=== PATIENT | male | born 1950 | race Two or more races ===

== ENCOUNTER 2016-11-02 20:47 | Emergency (ER) | payer MEDICAID, MEDICARE ==
[~2016-11-02] VITALS: Ht 152.4 cm; Wt 72.6 kg
[2016-11-02 21:04] VITALS: BP 190/98
== END 2016-11-02 21:35 | disposition home or self-care (01) ==
LOC: ER 20:51
DX: G40.909 Epilepsy, unspecified, not intractable, without status epilepticus (principal); I10 Essential (primary) hypertension
CPT/HCPCS: 99283; A4606; Z7610

== ENCOUNTER 2020-02-02 18:12 | Inpatient (IN) | payer MEDICAID, MEDICARE ==
[~2020-02-02] VITALS: Ht 152.4 cm; Wt 64.2 kg
[2020-02-02 19:00] LABS: BASOPHILS # (AUTO) 0.1 /CMM (0.0-0.2); BASOPHILS % (AUTO) 0.8 % (0.0-2.0); HEMATOCRIT 43 % (39-51); HEMOGLOBIN 14.5 g/dL (13.5-17.5); LYMPHOCYTES # (AUTO) 0.7 /CMM (0.8-4.8); LYMPHOCYTES % (AUTO) 9.5 % (20.0-44.0); MEAN CORPUSCULAR HGB CONC 34 g/dl (31.0-36.0); MEAN CORPUSCULAR VOLUME 88 fL (80-96); MONOCYTES # (AUTO) 0.9 /CMM (0.1-1.30); MONOCYTES % (AUTO) 12.2 % (2.0-12.0); NEUTROPHILS % (AUTO) 77.5 % (43.0-81.0); PLATELET COUNT (AUTO) 127 /CMM (150-450); RED BLOOD CELL COUNT(AUTO) 4.88 MIL/uL (4.5-6.0); WHITE BLOOD COUNT (AUTO) 7.7 K/uL (4.3-11.0)
[2020-02-02] MEDS ORDERED: IV NS 0.9% 1,000 ML BAG IV ONE (19:00)
--- NOTE | 2020-02-02 19:05 | NUR ---
ROBERTO FROM HOME TO ER BED 12. AAOX3. NOT IN RESP DISTRESS, BREATHING EVEN AND UNLABORED. BROUGHT IN FOR DIZZYNESS, GEN WEAKNESS AND UNSTEADY GAIT. PER REPORT, PT HAS BEEN HAVINHGTHE SYSMPTOMS SINCE THIS MORNING. PT WAS NOTED BY HIS WALKING UNSTEADY AND REPORTED THAT HE HAD FALLEN. NO REPORTS OBTAINED IF PT HIT HIS HEAD BUT NO NOTED VISUAL INJURY. MD WAS AT THE BEDSIDE FOR EVAL. ORDERS RECEIVED NOTED AND CARRIED OUT. IV LINE IS ALREADY ESTABLISHED UPON ARRIVAL. BLOOD DRAWN AND GIVEN TO ARCHITECTURAL ENGINEERING TEACHER. PT WAS AMBULATED PER MD ORDERED FOR GAIT TEST, PT IS WOBBLING ON UNSTEADY GAIT. URINE COLLECTED AND SENT TO LAB
[2020-02-02 19:10] LABS: BILIRUBIN,URINE Negative (NEGATIVE); BLOOD, URINE Moderate Ery/uL (NEGATIVE); COLOR,URINE Yellow (YELLOW); KETONES,URINE Trace (NEGATIVE); LEUKOCYTE ESTERASE ,URINE Negative (NEGATIVE); NITRITE, URINE Negative (NEGATIVE); PROTEIN,URINE >=300 mg/dl (NEGATIVE); UGLUCOSE Negative (NEGATIVE); UROBILINOGEN,URINE 0.2 EU/dL (0.2)
[2020-02-02 19:12] LABS: APPEARANCE,URINE HAZY (CLEAR)
[2020-02-02 19:21] LABS: BACTERIA,URINE Few /HPF (None Seen); SQUAMOUS EPITHELIAL CELL,UR Few /HPF (None Seen); WBC,URINE 0-2 /HPF (0-3)
[2020-02-02 19:29] LABS: BILIRUBIN,DIRECT 0.2 mg/dL (0.0-0.2); BILIRUBIN,TOTAL 0.4 mg/dL (0.2-1.0); CALCIUM, SERUM 8.2 mg/dL (8.5-10.1); TOTAL PROTEIN, SERUM 7.9 g/dL (6.4-8.2)
[2020-02-02 19:33] LABS: ALCOHOL, BLOOD 0 mg/dL (0-0)
[2020-02-02 19:35] LABS: SERUM AMMONIA 24 umol/L (11-32)
[2020-02-02] MEDS ORDERED: ENALAPRILAT INJ (1.25 MG/ML) 1.25 MG/ML VIAL IV ONE (19:42)
[2020-02-02] MEDS ORDERED: FUROSEMIDE 100 MG/10 ML VIAL ONE (19:42)
--- NOTE | 2020-02-02 19:42 | NUR ---
CALLED LAB FOR RAPID COVID SWAB FOR PENDING ADMISSION
[2020-02-02] MEDS ORDERED: NITROGLYCERIN 0.4 MG/TAB BOTTLE ONE (19:43)
[2020-02-02] MEDS ORDERED: FUROSEMIDE 40 MG/4 ML VIAL ONE (19:51)
[2020-02-02] MEDS ORDERED: FUROSEMIDE 20 MG/2 ML VIAL ONE (19:51)
[2020-02-02] MEDS ORDERED: ENALAPRILAT INJ (1.25 MG/ML) 1.25 MG/ML VIAL IV PRN (20:00)
[2020-02-02] MEDS ORDERED: FUROSEMIDE 40 MG/4 ML VIAL IV ONE (20:00)
[2020-02-02] MEDS ORDERED: NITROGLYCERIN 0.4 MG/TAB BOTTLE SL ONE (20:00)
[2020-02-02] MEDS ORDERED: ASPIRIN 81 MG TAB.CHEW PO ONE (20:00)
--- NOTE | 2020-02-02 20:09 | NUR ---
DR. VEENA IRVING PER TOBI ALBERTO ORDER.
--- NOTE | 2020-02-02 20:13 | NUR ---
PT SAT 03% PLACED ON 2L NC SAT 98% NOW.
--- NOTE | 2020-02-02 20:13 | NUR ---
1 NITRO SL GIVEN, PER MD GIVE 2SL NITRO. WILL WAIT 5MINS THEN ADMINISTER ANOTHER.
--- NOTE | 2020-02-02 20:22 | NUR ---
SECOND NITRO GIVEN TO PT/ BP 203/104, HR 91. MD AWARE.
--- NOTE | 2020-02-02 20:33 | NUR ---
LAB CALLED REGARDING NEGATIVE COVID RESULT.
--- NOTE | 2020-02-02 20:34 | NUR ---
CALLED NURSING SUP FOR TELE BED.
--- NOTE | 2020-02-02 20:37 | NUR ---
RENETTA 117-1
--- NOTE | 2020-02-02 20:53 | NUR ---
REPORT GIVEN TO TONY ROGERS FOR [facility]
--- NOTE | 2020-02-02 21:15 | NUR ---
STATISTICAL MODELER NOTES RECEIVED PT FROM ER VIA TODD A/O X4 TAIWANESE SPEAKING ONLY, ON ROOM AIR SPO2 96% TOLERATING WELL NO SIGN AND SYMPTOMS OF RESPIRATORY DISTRESS WALK TO THE BED WITH ASSISTANCE, HEAD TO TOE ASSESSMENT DONE LEFT KNEE SCAB NOTED OTHERWISE SKIN ARE INTACT, PT ASK URINAL TO PEE OUT PUT ONLY 15ML, V/S CHECKED BP 148/75 TEMP 99.5 HR 89 RR, 20, HOOKED TO TELE MONITOR WITH READING SINUS RHYTHM 90'S INITIAL ADMISSION ASSESSMENT DONE, NURSING SWALLOW TEST DONE PT PASS, PT ABLE TO DRINK WATER AND EAT, SAFETY MEASURE INITIATED BED ON LOWEST POSITION AND LOCKED SIDE RAILS UP, SEIZURE PRECAUTION INITIATED, WILL CONT TO MONITOR Addendum: 02/03/20 at 0207 by KEN GARCIA RN PT WAS TRANSLATED BY THE DYAN COOPER
--- NOTE | 2020-02-02 21:17 | NUR ---
PT TRANSPORTED TO UNIT ON GURNEY WITH EMT AND RN AT BEDSIDE W/ ACLS PROTOCOL. NAD NOTED DURING TRNASPORT. PT AMBULATED W/ MIN ASSIST FROM GURNEY TO BED.
[2020-02-02 21:31] VITALS: BP 148/75
[2020-02-02] MEDS ORDERED: MAG HYDROX/AL HYDROX/SIMETH 30 ML UDC PO PRN (22:00)
[2020-02-02] MEDS ORDERED: Z GUARD REMEDY 2 OZ OINT TP PRN (22:00)
[2020-02-02] MEDS ORDERED: MAGNESIUM HYDROXIDE 30 ML UDC PO PRN (22:00)
[2020-02-02] MEDS ORDERED: ONDANSETRON HCL/PF 4 MG/2 ML VIAL IVP PRN (22:00)
[2020-02-02] MEDS ORDERED: HYDROCODONE/APAP 5/325MG TABLET PO PRN (22:00)
--- NOTE | 2020-02-02 22:00 | NUR ---
RN NOTES PT TRY TO URINATE BUT ONLY SMALL AMOUT CAME OUT PT IS COMPLAINING OF PAIN ON HIS PUBIS AREA, DR. GANNON MADE AWARE, VERGARA CATHETER WAS INSERTED YELLOW URINE DRAINED VIA GRAVITY 300ML INITIAL OUTPUT, WILL CONT TO MONITOR
[2020-02-02] MEDS: ENOXAPARIN SODIUM 40 MG/0.4 ML DISP.SYRIN SQ SCH (22:09)
[2020-02-03] VITALS (8 sets, daily range): BP systolic 124–155; BP diastolic 72–98
[2020-02-03] MEDS ORDERED: PHENYTOIN EXTENDED RELEASE 100 MG CAPSULE PO SCH (00:30)
[2020-02-03] MEDS: ASPIRIN 325 MG TABLET PO SCH ×2 (00:50→08:41)
[2020-02-03] MEDS: TAMSULOSIN 0.4 MG CAP.SR.24H PO SCH ×2 (00:50→21:07)
[2020-02-03] MEDS: PHENYTOIN EXTENDED RELEASE 100 MG CAPSULE PO SCH ×3 (00:50→21:07)
[2020-02-03] MEDS: METOPROLOL TARTRATE 25 MG TABLET PO SCH ×3 (00:54→21:07)
[2020-02-03] MEDS: NITROGLYCERIN PACKET 1 GM PACKET TOP SCH ×4 (00:55→21:07)
--- NOTE | 2020-02-03 06:46 | NUR ---
RN CLOSING NOTES PT ON BED ASLEEP NO SIGN AND SYMPTOMS OF RESPIRATORY DISTRESS, SPO2 96% 02 2L VIA NC, NO SIGNIFICANT CHANGES ON CONDITION NOTED, TELE MONITOR READS SINUS RHYTHM 80'S ALL NEEDS ATTENDED, SAFETY MEASURE MAINTAINED BED ON LOWEST POSITION AND LOCKED SIDE RAILS UP X 2 CALL LIGHT WITHIN REACH WILL ENDORSE TO AM SHIFT NURSE
--- NOTE | 2020-02-03 07:45 | NUR ---
RN OPENING NOTES RECEIVED PT ON BED ASLEEP NO SIGN AND SYMPTOMS OF RESPIRATORY DISTRESS, SPO2 96% 02 2L VIA NC. PATIENT IS PAKISTANI SPEAKING ONLY. TELE MONITOR READS SINUS RHYTHM 80''S. IV ACCESS NOTED RAC # 18, FLUSH AND PATENT. SAFETY MEASURE MAINTAINED BED ON LOWEST POSITION AND LOCKED SIDE RAILS UP X 2 CALL LIGHT WITHIN REACH WILL CONTINUE TO MONITOR.
[2020-02-03 07:56] LABS: BASOPHILS % (AUTO) 0.6 % (0.0-2.0); HEMATOCRIT 42 % (39-51); HEMOGLOBIN 14.2 g/dL (13.5-17.5); LYMPHOCYTES # (AUTO) 0.9 /CMM (0.8-4.8); LYMPHOCYTES % (AUTO) 10.4 % (20.0-44.0); MEAN CORPUSCULAR HGB CONC 34 g/dl (31.0-36.0); MEAN CORPUSCULAR VOLUME 87 fL (80-96); MONOCYTES # (AUTO) 0.9 /CMM (0.1-1.30); MONOCYTES % (AUTO) 10.3 % (2.0-12.0); NEUTROPHILS # (AUTO) 6.8 /CMM (1.8-8.9); NEUTROPHILS % (AUTO) 78.7 % (43.0-81.0); PLATELET COUNT (AUTO) 134 /CMM (150-450); RED BLOOD CELL COUNT(AUTO) 4.77 MIL/uL (4.5-6.0); WHITE BLOOD COUNT (AUTO) 8.7 K/uL (4.3-11.0)
[2020-02-03 08:05] LABS: CALCIUM, SERUM 7.8 mg/dL (8.5-10.1); CREATININE 0.9 mg/dL (0.6-1.3); MAGNESIUM 2.1 mg/dL (1.8-2.4); PHOSPHORUS 2.8 mg/dL (2.5-4.9); POTASSIUM 3.6 mmol/L (3.5-5.1)
[2020-02-03] MEDS: ATORVASTATIN 10 MG TABLET PO SCH (09:48)
[2020-02-03 10:22] LABS: THYROID STIMULATING HORMONE 3.278 uIU/mL (0.358-3.74)
--- NOTE | 2020-02-03 16:57 | NUR ---
patient discontinue dietrich out by accidently dietrich out upr was 450ml and bladder scan shows 47ml was notified and orders taken bladder scan q6hrs next due will be 2300 and will call MD if above 300ml of bladder scan will endorse to next shift
--- NOTE | 2020-02-03 18:42 | NUR ---
RN CLOSING NOTES WILL ENDORSE TO PM NURSE. PT ON BED RESTING COMFORTABLE. NO SIGN AND SYMPTOMS OF RESPIRATORY DISTRESS, SPO2 96% 02 2L VIA NC, NO SIGNIFICANT CHANGES ON CONDITION NOTED, TELE MONITOR READS SINUS RHYTHM 80'S ALL NEEDS ATTENDED, SAFETY MEASURE MAINTAINED BED ON LOWEST POSITION AND LOCKED SIDE RAILS UP X 2 CALL LIGHT WITHIN REACH .
--- NOTE | 2020-02-03 19:05 | NUR ---
RN OPENING NOTES RECEIVED PT ON BED AWAKE A/O X4 ON ROOM AIR SPO2 97% NO SIGN AND SYMPTOMS OF RESPIRATORY DISTRESS, NO COMPLAINT OF PAIN ON TELE MONITOR WITH READING SINUS RHYTHM 80'S WITH R AC # 18 IV PATENT AND FLUSHED NO INFILTRATION OR PHLEBITIS NOTED,MINIMAL BLEEDING OF PENIS NOTED FOR BLADDER SCAN Q6H LAST CHECKED AT 1600 WITH 47ML PVR, SAFETY MEASURE MAINTAINED BED ON LOWEST POSITION AND LOCKED SIDE RAILS UP X 2 CALL LIGHT WITHIN REACH WILL CONT TO MONITOR
[2020-02-03] MEDS: ENOXAPARIN SODIUM 40 MG/0.4 ML DISP.SYRIN SQ SCH (21:08)
--- NOTE | 2020-02-03 22:16 | NUR ---
RN NOTES BLADDER SCAN DONE PVR 111 ML NO MORE PENIS BLEEDING ZABRINA WILL CONT TO MONITOR
[2020-02-04] VITALS (9 sets, daily range): BP systolic 116–176; BP diastolic 61–93
--- NOTE | 2020-02-04 04:00 | NUR ---
RN NOTES BLADDER SCAN DONE PVR 50ML, DIAPER WAS WET WITH MINIMAL BLOOD TINGE, NO CLOT NOTED NO BLEEDING NOTED
[2020-02-04] MEDS: NITROGLYCERIN PACKET 1 GM PACKET TOP SCH (04:16)
[2020-02-04 06:42] LABS: BASOPHILS % (AUTO) 0.3 % (0.0-2.0); HEMATOCRIT 39 % (39-51); HEMOGLOBIN 13.2 g/dL (13.5-17.5); LYMPHOCYTES # (AUTO) 0.9 /CMM (0.8-4.8); LYMPHOCYTES % (AUTO) 9.9 % (20.0-44.0); MEAN CORPUSCULAR HGB CONC 34 g/dl (31.0-36.0); MEAN CORPUSCULAR VOLUME 87 fL (80-96); MONOCYTES # (AUTO) 1.1 /CMM (0.1-1.30); MONOCYTES % (AUTO) 11.5 % (2.0-12.0); NEUTROPHILS # (AUTO) 7.3 /CMM (1.8-8.9); NEUTROPHILS % (AUTO) 78.3 % (43.0-81.0); PLATELET COUNT (AUTO) 141 /CMM (150-450); RED BLOOD CELL COUNT(AUTO) 4.47 MIL/uL (4.5-6.0); WHITE BLOOD COUNT (AUTO) 9.4 K/uL (4.3-11.0)
--- NOTE | 2020-02-04 06:49 | NUR ---
RN CLOSING NOTES PT ON BED ASLEEP NO SIGN AND SYMPTOMS OF RESPIRATORY DISTRESS, SPO2 96% VIA ROOM AIR NO SIGNIFICANT CHANGES ON CONDITION NOTED, TELE MONITOR READS SINUS RHYTHM 80'S ALL NEEDS ATTENDED,FOR NEURO CONSULT, AND GENTLE HYDRATION A PLAN SAFETY MEASURE MAINTAINED BED ON LOWEST POSITION AND LOCKED SIDE RAILS UP X 2 CALL LIGHT WITHIN REACH WILL ENDORSE TO AM SHIFT NURSE
--- NOTE | 2020-02-04 07:00 | NUR ---
LEVEL VIAL CURVATURE GAUGER 1 A/O X3 PATIENT IS GEORGIAN SPEAKING BUT UNDERSTAND AND IS COOPERATIVE WITH CARE. PATIENT HAS EXTERNAL MONITOR SR IN 70'S PATIENT IS ABLE TO AMBULATE WITH ASSIST, PATIENT WAS NOTIFED TO CALL NURSES FOR ASSISTANCE TO GO TO THE BATH ROOM. PATIENT IS AWARE . PATIENT HAS L KNEE SCAB. BUT SKIN IS IN TACT, PATIENT VITALS STABLE AT THIS TIME NO PAIN , NO SOB NO ACUTE RESPIRATORY DISTRESS PATIENT HAS R AC 18 N OSIGNS OF INFILTRATION REDNESS BED LOCKED AND LOWEST POSITION CALL LIGHT WITH IN REACH 2 X SAFETY RAILS UP CALL LIGHT WITH IN REACH ALL SAFETYM EASURE IMPLEMENTED PER HOSPITAL POLICY
[2020-02-04 08:20] LABS: ALBUMIN 2.6 g/dL (3.4-5.0); BILIRUBIN,TOTAL 0.4 mg/dL (0.2-1.0); CALCIUM, SERUM 8.1 mg/dL (8.5-10.1); CREATININE 1.1 mg/dL (0.6-1.3); MAGNESIUM 2.2 mg/dL (1.8-2.4); PHOSPHORUS 3.8 mg/dL (2.5-4.9); POTASSIUM 3.7 mmol/L (3.5-5.1); TOTAL PROTEIN, SERUM 7.2 g/dL (6.4-8.2)
[2020-02-04] MEDS: ASPIRIN 325 MG TABLET PO SCH (08:26)
[2020-02-04] MEDS: METOPROLOL TARTRATE 25 MG TABLET PO SCH ×2 (08:27→22:09)
[2020-02-04] MEDS: ATORVASTATIN 10 MG TABLET PO SCH (08:27)
[2020-02-04] MEDS: PHENYTOIN EXTENDED RELEASE 100 MG CAPSULE PO SCH ×2 (08:27→22:10)
[2020-02-04 08:32] LABS: THYROID STIMULATING HORMONE 3.314 uIU/mL (0.358-3.74)
--- NOTE | 2020-02-04 10:00 | NUR ---
RN - BLADDER SCAN 55 ML
--- NOTE | 2020-02-04 11:00 | NUR ---
ASSISTANT COUNTY ENGINEER --- PEE PATIENT WANTED TO GET UP AND USE THE BATH ROOM PATIENT WAS ASSISTED BY RESEARCH GREENHOUSE SUPERVISOR. PATIENT LOSING BALANCE AND PEE RED TINGED URINE. WAS NOT ABLE TO PEE IN THE URINAL .
[2020-02-04] MEDS: SPIRONOLACTONE 25 MG TABLET PO SCH (14:06)
[2020-02-04] MEDS: ACETAMINOPHEN 325 MG TABLET PO PRN ×2 (15:48→22:17)
--- NOTE | 2020-02-04 16:30 | NUR ---
GRANULATING BLENDER PATIENT TEMP 99.3 PATIENT GIVEN TYLENOL
--- NOTE | 2020-02-04 17:00 | NUR ---
DATABASE SECURITY ADMINISTRATOR BLADDER SCAN 95ML.
[2020-02-04] MEDS ORDERED: METO25TA20 PO (17:57)
[2020-02-04] MEDS ORDERED: PHEN100C4 PO (17:57)
[2020-02-04] MEDS ORDERED: ATOR10TA PO (17:57)
[2020-02-04] MEDS ORDERED: ASPI-992 PO (17:57)
[2020-02-04] MEDS ORDERED: TAMS-12 PO (17:57)
[2020-02-04] MEDS ORDERED: SPIR25TA6 PO (17:57)
--- NOTE | 2020-02-04 19:30 | NUR ---
RN TELE1 PATIENT HELD FROM DISCHARGE PATIENT BP 176/96 - TEMPERATURE 102.5 . COIL CONNECTOR WAS CALL FOR ORDER DR RUBIO ORDERED FOR FOR BLOOD CULTURES
--- NOTE | 2020-02-04 19:45 | NUR ---
TRAINING ENGINEER - NEW ORDERS DR. RUBIO 2X BLOOD CULTURES 15 MINS APART , UA , CHEST XRAY STATE ORDERS . CANCELLED DISCHARGE , NOTIFED DR GRAHAM
--- NOTE | 2020-02-04 19:49 | NUR ---
RN NOTE RECEIVED PT IN BED RESTING. BAHAMIAN SPEAKING. BLOW MOLDING MACHINE OPERATOR USED. ALERT AND ORIENTED X 4. FULL CODE. ON OXYGEN VIA NASAL CANNULA AT PT WAS UNABLE TO GET DISCHARGED ORIGINALLY PLANNED DUE TO UNSTABLE VITALS. @1939 TEMP WAS 102, BP 176/93 APPLIED ICE PACKS, UNABLE TO GIVEN PRN TYLENOL UNTIL AFTER 2129. ADMINISTERED CATAPRES PRN ORDERED. BED IS LOCKED IN LOWEST POSITION WITH BED ALARM ON. WILL CONTINUE TO MONITOR CLOSELY AND REASSESS ABNORMAL VITAL SIGNS. Addendum: 02/05/20 at 0606 by ALEXA ISAACS RN RN NOTE @2209 TEMP REASSESSED 101.9 @2216 GAVE TYLENOL PRN 650 MG @2330 TEMP REASSESSED 100.0 @2217 ON 02/04/20 PT CHECKED
[2020-02-04] MEDS: CLONIDINE HCL 0.1 MG TABLET PO PRN (19:58)
--- NOTE | 2020-02-04 20:00 | NUR ---
MS RN NOTE DR CURIEL INFORMED IF PT IS STAYING OVERNIGHT THEN PT IS REMAIN MS OR TELE. PER MD KEEP HIM MS UNLESS THERE IS CARDIAC ISSUE. TELE DC'D.
--- NOTE | 2020-02-04 21:00 | NUR ---
MS RN NOTE PT IN BED IN AND OUT CATH DONE URINE SPECIMEN COLLECTED. NOTED HEMATURIA. INFORMED DR CURIEL. NO NEW ORDER GIVEN AT THIS TIME. SPECIMEN SENT TO LAB ORDERED.
[2020-02-04] MEDS: ENOXAPARIN SODIUM 40 MG/0.4 ML DISP.SYRIN SQ SCH (22:00)
[2020-02-04] MEDS: TAMSULOSIN 0.4 MG CAP.SR.24H PO SCH (22:10)
--- NOTE | 2020-02-04 22:20 | NUR ---
RN NOTE LOVENOX HELD DUE TO PRESENCE OF HEMATURIA.
[2020-02-05] VITALS: BP 115/66
--- NOTE | 2020-02-05 00:02 | NUR ---
RN NOTE STRAIGHT CATH DONE. HEMATURIA WAS PRESENT. 200 ML OUT.
--- NOTE | 2020-02-05 00:34 | NUR ---
RN NOTE TEMP REASSESSED 99.0
[2020-02-05 04:00] VITALS: BP 115/66
[2020-02-05 04:21] LABS: APPEARANCE,URINE CLOUDY (CLEAR); BILIRUBIN,URINE SMALL (NEGATIVE); BLOOD, URINE LARGE Ery/uL (NEGATIVE); COLOR,URINE RED (YELLOW); KETONES,URINE TRACE (NEGATIVE); LEUKOCYTE ESTERASE ,URINE TRACE (NEGATIVE); NITRITE, URINE POSITIVE (NEGATIVE); PH,URINE 6.5 (5.0-8.0); PROTEIN,URINE >=300 mg/dl (NEGATIVE); UGLUCOSE NEGATIVE (NEGATIVE)
[2020-02-05 04:25] LABS: RBC,URINE TOO NUMEROUS TO COUN /HPF (0-2)
[2020-02-05 04:26] LABS: BACTERIA,URINE Few /HPF (None Seen); SQUAMOUS EPITHELIAL CELL,UR Rare /HPF (None Seen)
[2020-02-05 04:44] LABS: EOSINOPHIL,URINE None Seen
[2020-02-05 04:47] LABS: CREATININE, URINE 164.6 MG/DL (30.0-125.0); URINE TOTAL PROTEIN 246.9 mg/dL (0-11.9)
[2020-02-05 06:17] LABS: BASOPHILS % (AUTO) 0.2 % (0.0-2.0); HEMATOCRIT 41 % (39-51); HEMOGLOBIN 13.9 g/dL (13.5-17.5); LYMPHOCYTES # (AUTO) 0.8 /CMM (0.8-4.8); LYMPHOCYTES % (AUTO) 7.6 % (20.0-44.0); MEAN CORPUSCULAR HGB CONC 34 g/dl (31.0-36.0); MEAN CORPUSCULAR VOLUME 87 fL (80-96); MONOCYTES # (AUTO) 0.9 /CMM (0.1-1.30); MONOCYTES % (AUTO) 8.3 % (2.0-12.0); NEUTROPHILS # (AUTO) 8.8 /CMM (1.8-8.9); NEUTROPHILS % (AUTO) 83.9 % (43.0-81.0); PLATELET COUNT (AUTO) 153 /CMM (150-450); RED BLOOD CELL COUNT(AUTO) 4.72 MIL/uL (4.5-6.0); WHITE BLOOD COUNT (AUTO) 10.5 K/uL (4.3-11.0)
[2020-02-05 06:55] LABS: CREATININE 0.9 mg/dL (0.6-1.3); MAGNESIUM 2.2 mg/dL (1.8-2.4); PHOSPHORUS 2.7 mg/dL (2.5-4.9); POTASSIUM 3.8 mmol/L (3.5-5.1)
[2020-02-05 08:00] VITALS: BP 163/99
--- NOTE | 2020-02-05 08:14 | NUR ---
RN CLOSING NOTE PATIENT IS CURRENTLY ASLEEP IN BED. LAST TEMPERATURE WAS OF 100.3 TAKEN AT 0400 VITALS. ON OXYGEN VIA NASAL CANNULA AT 3L. ALERT AND ORIENTED X 3. SLOVAK SPEAKING. USED EYEGLASS FRAME TRUER THROUGHOUT SHIFT. SINUS RHYTHM 80. PATIENT HAS NO SIGNS OF SHORTNESS OF BREATH OR RESPIRATORY DISTRESS AT THIS TIME. PATIENT VERBALIZED COMPLAINTS OF BEING COLD. SECONDARY TO THE FEVER. TOOK OFF SHEETS AND EXPLAINED PURPOSE WITH EYEGLASS FRAME TRUER. HEMATURIA PRESENT FROM IN AND OUT CATH. 200 ML OUT. SKIN INTACT ASIDE FROM LEFT KNEE SCAB. LAST TYLENOL GIVEN WAS AT 2210 FOR FEVER OF 101.9. REASSESSED WITH TEMP OF 100.0 TRENDING DOWN REASSESSED 99.0 LAST TEMP WAS 100.3 AT 0400 VITALS. BED IS LOCKED IN LOWEST POSITION WITH BED ALARM ON. ENDORSED TO ONCOMING SHIFT NURSE FOR CONTINUATION OF CARE.
[2020-02-05] MEDS: PHENYTOIN EXTENDED RELEASE 100 MG CAPSULE PO SCH ×2 (09:10→20:53)
[2020-02-05] MEDS: ACETAMINOPHEN 325 MG TABLET PO PRN ×2 (09:11→20:55)
[2020-02-05] MEDS: ATORVASTATIN 10 MG TABLET PO SCH (09:11)
[2020-02-05] MEDS: METOPROLOL TARTRATE 25 MG TABLET PO SCH ×2 (09:11→20:53)
[2020-02-05] MEDS: SPIRONOLACTONE 25 MG TABLET PO SCH (09:11)
[2020-02-05] MEDS: ASPIRIN 325 MG TABLET PO SCH (09:12)
[2020-02-05] MEDS ORDERED: LEVOFLOXACIN (250MG) 250 MG TABLET PO SCH (11:00)
[2020-02-05] MEDS: FUROSEMIDE 40 MG/4 ML VIAL IV SCH ×3 (11:24→18:38)
[2020-02-05] MEDS: POTASSIUM CHLORIDE 20 MEQ TAB.PRT.SR PO SCH ×3 (11:24→13:45)
[2020-02-05 12:00] VITALS: BP 131/75
--- NOTE | 2020-02-05 13:45 | NUR ---
Pt was received this am, alert and oriented x 3, afebrile. Will continue to monitor temp and will give Tylenol PRN. Ambulates with assist and sat on the bedside chair. Good appetite noted, denies any pain or discomfort. Tolerating small pills, taken 1 puill at a time. Replaced PIV, old one was infiltrated or dislodged. Had two episodes of watery soft stool this am, will obtain a specimen for the next one for Cdiff per Dr. Robby Burdick
[2020-02-05 16:00] VITALS: BP 164/99
--- NOTE | 2020-02-05 18:32 | NUR ---
Pt had a noneventful day, bladder scan was done at 1727 and obtained 127 cc, copy was placed in the chart. Some bleeding noted from the penis and noticed dried blood with a blood clot, was informed that pt pulled out his dietrich cath yesterday. Bleeding is stopped now and clot remains intact. Pt had two episodes of watery stool, Dr. Robby Steinberg was informed and ordered to obtain specimen for Cdiff if another episode of watery diarrhea happens again. Will give report to night supervisor for [facility].
--- NOTE | 2020-02-05 19:10 | NUR ---
RN OPENING NOTES RECEIVED PT ON BED AWAKE A/O X4 ON ROOM AIR SPO2 94% NO SIGN AND SYMPTOMS OF RESPIRATORY DISTRESS,BUT PT IS COUGHING RIGHT NOW NO COMPLAINT OF PAIN ON R HAND #20 IV PATENT AND FLUSHED NO INFILTRATION OR PHLEBITIS NOTED,NO BLEEDING OF PENIS NOTED FOR BLADDER SCAN Q6H LAST CHECKED AT 1800 WITH 50ML PVR, SAFETY MEASURE MAINTAINED BED ON LOWEST POSITION AND LOCKED SIDE RAILS UP X 2 CALL LIGHT WITHIN REACH WILL CONT TO MONITOR
[2020-02-05 20:00] VITALS: BP 142/91
[2020-02-05] MEDS: ENOXAPARIN SODIUM 40 MG/0.4 ML DISP.SYRIN SQ SCH (21:02)
[2020-02-05] MEDS: TAMSULOSIN 0.4 MG CAP.SR.24H PO SCH (21:02)
--- NOTE | 2020-02-05 22:00 | NUR ---
RN NOTES TEMP RECHECKED 99.3 PT IS ABLE TO PEE, DIAPER WAS WET, NO PAIN COMPLAINT,
--- NOTE | 2020-02-06 00:21 | NUR ---
RN NOTES MD MADE AWARE OF PT COUGHING AND ELEVATED TEMP @ 1999, MD WILL ORDER PULMO CONSULT [place] AM, BLADDER SCAN DONE PVR 60ML
[2020-02-06 04:00] VITALS: BP 108/69
[2020-02-06 06:45] LABS: BASOPHILS % (AUTO) 0.3 % (0.0-2.0); EOSINOPHILS % (AUTO) 0.1 % (0.0-6.0); HEMATOCRIT 44 % (39-51); HEMOGLOBIN 14.8 g/dL (13.5-17.5); LYMPHOCYTES # (AUTO) 0.6 /CMM (0.8-4.8); LYMPHOCYTES % (AUTO) 6.8 % (20.0-44.0); MEAN CORPUSCULAR HGB CONC 34 g/dl (31.0-36.0); MEAN CORPUSCULAR VOLUME 87 fL (80-96); MONOCYTES # (AUTO) 0.9 /CMM (0.1-1.30); MONOCYTES % (AUTO) 9.5 % (2.0-12.0); NEUTROPHILS # (AUTO) 7.9 /CMM (1.8-8.9); NEUTROPHILS % (AUTO) 83.3 % (43.0-81.0); PLATELET COUNT (AUTO) 169 /CMM (150-450); RED BLOOD CELL COUNT(AUTO) 5.02 MIL/uL (4.5-6.0); WHITE BLOOD COUNT (AUTO) 9.4 K/uL (4.3-11.0)
--- NOTE | 2020-02-06 06:54 | NUR ---
RN CLOSING NOTES PT ON BED ASLEEP NO SIGN AND SYMPTOMS OF RESPIRATORY DISTRESS, SPO2 95% VIA ROOM AIR NO SIGNIFICANT CHANGES ON CONDITION NOTED, LATEST TEMP 98.5 ALL NEEDS ATTENDED, GENTLE HYDRATION A PLAN SAFETY MEASURE MAINTAINED BED ON LOWEST POSITION AND LOCKED SIDE RAILS UP X 2 CALL LIGHT WITHIN REACH WILL ENDORSE TO AM SHIFT NURSE
[2020-02-06 07:13] LABS: ALBUMIN 2.5 g/dL (3.4-5.0); BILIRUBIN,TOTAL 0.4 mg/dL (0.2-1.0); CALCIUM, SERUM 8.2 mg/dL (8.5-10.1); POTASSIUM 3.6 mmol/L (3.5-5.1); TOTAL PROTEIN, SERUM 7.9 g/dL (6.4-8.2)
--- NOTE | 2020-02-06 07:50 | NUR ---
PROCESS AREA SUPERVISOR/RENETTA OPENING NOTE RECEIVED PT IN BED AWAKE, ALERT AND ORIENTED X3. PT IS GERMAN SPEAKING BUT ABLE TO COMMUNICATE HIS NEEDS. NO ACUTE DISTRESS OR SOB NOTED AT THIS TIME. PT IS IN STABLE CONDITION. PT IS ON 4L OF OXYGEN SATURATING AT 99% AT THIS TIME. PT IS ABLE TO AMBULATE TO THE RESTROOM WITH ASSISTANCE. PT NOTED WITH A LEFT KNEE SCAB. PT HAS A RIGHT FOREARM 20' INTACT, PATENT AND FLUSHING WELL. NO TEMPERATURE NOTED AT THIS TIME. BED ALARM ON TO ENSURE PT SAFETY. FREQUENTLY MONITORING PROVIDED TO ENSURE SAFETY AT ALL VESNA ES. CALL LIGHT WITHIN REACH AND FUNCTIONING. WILL CONTINUE MONITOR AND ASSESS PT.
[2020-02-06] MEDS: ASPIRIN 325 MG TABLET PO SCH (08:40)
[2020-02-06] MEDS: ATORVASTATIN 10 MG TABLET PO SCH (08:40)
[2020-02-06] MEDS: PHENYTOIN EXTENDED RELEASE 100 MG CAPSULE PO SCH ×2 (08:40→21:38)
[2020-02-06] MEDS: SPIRONOLACTONE 25 MG TABLET PO SCH (08:40)
[2020-02-06] MEDS: METOPROLOL TARTRATE 25 MG TABLET PO SCH ×2 (08:42→22:05)
[2020-02-06] MEDS: CARVEDILOL 12.5 MG TABLET PO SCH ×2 (09:42→22:05)
--- NOTE | 2020-02-06 09:45 | NUR ---
RT TELE/ RENETTA NOTE DR. ROBB CAME AND ASSESS PT. PCR ORDERED DUE TO PT HAVING A DRY COUGH DESCRIBED BY EDGE PLUGGER NURSE. NO COUGHING NOTED SO FAR DURING DAY SHIFT. ALL SAFETY MEASURES IMPLEMENTED AND TAKEN. PCR SWAB DONE AND TAKEN TO LAB. AWAITING RESULTS. WILL CONTINUE TO MONITOR AND ASSESS PT.
[2020-02-06] MEDS: LEVOFLOXACIN 750 MG /D5W 150ML 750 MG in PREMIX 1 EA IV SCH (10:03)
--- NOTE | 2020-02-06 11:15 | NUR ---
GALVANIZING POT RUNNER/RENETTA NOTE GOT ORDER TO TRANSFER PT TO ICU. ORDER FOLLOWED CHARGE NURSE AND PT AWARE. BEDSIDE REPORT GIVEN TO NICHOLAS. PT LEFT IN STABLE CONDITION WITH BELONGINGS.
--- NOTE | 2020-02-06 12:00 | NUR ---
RN OPENING NOTES RECEIVED PATIENT FROM RENETTA DUE TO PATIENT BEING TESTED FOR COVID. PATIENT IS IN STABLE CONDITION, ADMITTED MED-SURG PATIENT. PATIENT IS A/O X2-3, EPISODES OF CONFUSION. HEBREW SPEAKING, USED DIRECTOR OF MIDWIFERY/STAFF MIDWIFE TO COMMUNICATE WITH THE PATIENT. ABLE TO AMBULATE WITH ASSISTANCE, VITAL SIGNS ARE STABLE, BP 136/94, HR-75, O2 SAT 98%, TEMP 98.5, RR -18. IV ACCESS ON RIGHT FOREARM #20, INTACT, PATENT AND FLUSHED WELL. SPOKE WITH PATIENTS REGARDING THE PATIENT TRANSFER. SAFETY MAINTAINED, CALL LIGHT WITHIN REACH, WILL CONTINUE TO MONITOR CLOSELY.
--- NOTE | 2020-02-06 18:58 | NUR ---
RN CLOSING NOTES NO ACUTE CHANGES TO PATIENT CONDITION DURING MY SHIFT. ALL PATIENT NEEDS MET, ALL SCHEDULED MEDS GIVEN ON TIME, PATIENT REMAINED ON 4L O2 VIA NC, SATURATION AT 98%, TOLERATING WELL. SAFETY WAS MAINTAINED, CALL LIGHT WITHIN REACH, BED LOCKED, ARMED, AND LOWERED, ENDORSED TO PM NURSE FOR BOLA.
--- NOTE | 2020-02-06 19:25 | NUR ---
RN NOTE TELEPHONE CALL FROM CHINO OF LAB, ADVISED THAT COVID PCR TEST WAS INDETERMINATE. SIGNING AGENT AND Kevin BECKETT JOURNEYMAN MEAT CUTTER NOTIFIED, ORDERS RECEIVED TO DO REPEAT SWAB TODAY. LAB NOTIFIED.
--- NOTE | 2020-02-06 19:30 | NUR ---
RN NOTE RECEIVED PT IN BED, AO X2-3, SPEAKS AND UNDERSTANDS YI ONLY, KENNETH STUART ABLE TO DO TRANSLATION. VERBALIZES DESIRE TO GO HOME. EXPLAINED REASON FOR HOSPITAL ADMISSION. NO S/SX OF ACUTE DISTRESS AT THIS TIME, . PATIENT'S BREATHING IS EVEN AND UNLABORED. PATIENT IS ON 4 L OF OXYGEN VIA NC, TOLERATING WELL, SATURATING AT 97%. HR IS STABLE AT 70'S. NOTED IV SITE AT RFA G20, PATENT AND FLUSHING WELL, NO S/S OF INFECTION OR INFILTRATION. NO SKIN ISSUES NOTED. PATIENT IS AMBULATORY, ON BRP WITH ASSIST, SLIGHT WEAKNESS AND SLOW GAIT NOTED. SAFETY MEASURES IMPLEMENTED PER PROTOCOL. PATIENT BED ALARM IS ON. HEAD OF BED ELEVATED. BED IS LOCKED, IN LOWEST POSITION AND SIDE RAILS UP. CALL LIGHT WITHIN REACH OF THE PATIENT. WILL CONTINUE TO MONITOR AND REASSESS FOR ANY CHANGES.
--- NOTE | 2020-02-06 21:30 | NUR ---
RN NOTE TELEPHONE CALL RECEIVED FROM PATIENT'S DAUGHTER, JOHNATHAN BELLO, PROVIDED HER WITH LIMITED INFORMATION FOR HIPAA COMPLIANCE, OFFERED TO CALL BACK IN THE MORNING SO SHE COULD SPEAK WITH MD. VERBALIZED UNDERSTANDING.
[2020-02-06] MEDS: TAMSULOSIN 0.4 MG CAP.SR.24H PO SCH (21:39)
--- NOTE | 2020-02-06 22:00 | NUR ---
RN NOTE COVID RE-SWAB DONE VIA NASOPHARYNGEAL ROUTE, PATIENT ID BAND CONFIRMED, CONTAINER PROPERLY LABELED, SPECIMEN SENT TO LAB AND RECEIVED BY Seanodes.
[2020-02-06] MEDS: ENOXAPARIN SODIUM 40 MG/0.4 ML DISP.SYRIN SQ SCH (22:10)
--- NOTE | 2020-02-07 01:12 | NUR ---
RN NOTE PATIENT REMAINS IN ROOM. NO SIGNS OF RESPIRATORY DISTRESS. SAFETY MEASURES IMPLEMENTED. ALL DUE MEDS ADMINISTERED ORDERED. PATIENT KEPT CLEAN AND COMFORTABLE. ENDORSED TO GERALDINE JIMENEZ FOR CONTINUATION OF CARE.
--- NOTE | 2020-02-07 01:13 | NUR ---
RN NOTE: Rec'd report from TONY Lozada for BOLA.
[2020-02-07 04:00] VITALS: BP 108/72
[2020-02-07 04:32] LABS: BASOPHILS % (AUTO) 0.4 % (0.0-2.0); EOSINOPHILS % (AUTO) 0.4 % (0.0-6.0); HEMATOCRIT 41 % (39-51); HEMOGLOBIN 13.8 g/dL (13.5-17.5); LYMPHOCYTES # (AUTO) 0.7 /CMM (0.8-4.8); LYMPHOCYTES % (AUTO) 7.2 % (20.0-44.0); MEAN CORPUSCULAR HGB CONC 34 g/dl (31.0-36.0); MEAN CORPUSCULAR VOLUME 86 fL (80-96); MONOCYTES # (AUTO) 1.1 /CMM (0.1-1.30); MONOCYTES % (AUTO) 11.3 % (2.0-12.0); NEUTROPHILS # (AUTO) 7.7 /CMM (1.8-8.9); NEUTROPHILS % (AUTO) 80.7 % (43.0-81.0); PLATELET COUNT (AUTO) 185 /CMM (150-450); RED BLOOD CELL COUNT(AUTO) 4.74 MIL/uL (4.5-6.0); WHITE BLOOD COUNT (AUTO) 9.6 K/uL (4.3-11.0)
[2020-02-07 04:41] LABS: CALCIUM, SERUM 8.4 mg/dL (8.5-10.1); MAGNESIUM 2.2 mg/dL (1.8-2.4); PHOSPHORUS 3.3 mg/dL (2.5-4.9); POTASSIUM 3.7 mmol/L (3.5-5.1)
--- NOTE | 2020-02-07 06:50 | NUR ---
RN CLOSING NOTES: Pt remained stable throughout shift. Remains on 4LPM NC. No SOB or resp distress noted throughout shift. No acute changes noted. RFA #20 patent and flushed. Dressing c/d/i. Kept pt clean/dry. Safety measues in place. Will endorse to AM nurse for BOLA.
--- NOTE | 2020-02-07 07:00 | NUR ---
RN NOTE RECEIVED PT ON BED, AO X2-3, ON 4L O2 N/C , RESPIRATION EVEN AND UNLABORED, NO SOB NOTED, RIGHT FA IV SITE G 20 CLEAN, DRY AND INTACT. SAFETY MEASURES IMPLEMENTED PER PROTOCOL. PATIENT BED ALARM IS ON FOR PT SAFETY , HEAD OF BED ELEVATED. BED IS LOCKED, IN LOWEST POSITION AND SIDE RAILS UP. CALL LIGHT WITHIN REACH OF THE PATIENT. WILL CONTINUE TO MONITOR AND REASSESS FOR ANY CHANGES.
[2020-02-07 08:00] VITALS: BP 154/94
[2020-02-07] MEDS: SPIRONOLACTONE 25 MG TABLET PO SCH (08:19)
[2020-02-07] MEDS: PHENYTOIN EXTENDED RELEASE 100 MG CAPSULE PO SCH ×2 (08:19→21:09)
[2020-02-07] MEDS: ASPIRIN 325 MG TABLET PO SCH (08:20)
[2020-02-07] MEDS: CARVEDILOL 12.5 MG TABLET PO SCH ×2 (08:20→21:11)
[2020-02-07] MEDS: ATORVASTATIN 10 MG TABLET PO SCH (08:20)
[2020-02-07] MEDS: METOPROLOL TARTRATE 25 MG TABLET PO SCH ×2 (08:21→21:11)
[2020-02-07] MEDS: LEVOFLOXACIN 750 MG /D5W 150ML 750 MG in PREMIX 1 EA IV SCH (09:25)
[2020-02-07] MEDS: FUROSEMIDE 40 MG/4 ML VIAL IV SCH ×3 (09:32→16:40)
[2020-02-07] MEDS: POTASSIUM CHLORIDE 20 MEQ TAB.PRT.SR PO SCH ×3 (09:32→11:41)
--- NOTE | 2020-02-07 10:00 | NUR ---
RN NOTES PT OUT OF BED TO BATHROOM WITH ASSIST , VOIDING WELL , CONTINUE TO MONITOR .
[2020-02-07 10:56] LABS: APPEARANCE,URINE SL CLOUDY (CLEAR); BILIRUBIN,URINE NEGATIVE (NEGATIVE); BLOOD, URINE LARGE Ery/uL (NEGATIVE); COLOR,URINE DARK YELLO (YELLOW); KETONES,URINE NEGATIVE (NEGATIVE); LEUKOCYTE ESTERASE ,URINE NEGATIVE (NEGATIVE); NITRITE, URINE NEGATIVE (NEGATIVE); PROTEIN,URINE NEGATIVE (NEGATIVE); UGLUCOSE NEGATIVE (NEGATIVE); UROBILINOGEN,URINE 0.2 EU/dL (0.2)
[2020-02-07 11:06] LABS: BACTERIA,URINE None seen /HPF (None Seen); RBC,URINE 51-80 /HPF (0-2); SQUAMOUS EPITHELIAL CELL,UR Rare /HPF (None Seen); WBC,URINE 0-2 /HPF (0-3)
[2020-02-07 11:12] LABS: CREATININE, URINE 57.1 MG/DL (30.0-125.0); URINE TOTAL PROTEIN 25.9 mg/dL (0-11.9)
[2020-02-07 12:00] VITALS: BP 127/91
[2020-02-07 16:00] VITALS: BP 139/97
--- NOTE | 2020-02-07 16:00 | NUR ---
RN NOTES CALL RECEIVED FROM LAB , PT IS POSITIVE JOLIE, DR TIARA SYLVESTER , CONTINUE TO MONITOR .
--- NOTE | 2020-02-07 18:08 | NUR ---
RN NOTES NO SIGNIFICANT CHANGES NOTED ON THIS SHIFT, PT REMAINS ON 4L O2 N/C , OUT OF BED TO BATHROOM WITH ASSIST , PT WANTS TO SIT ON THE EDGE OF THE BED MOST OF THE TIME, VOIDING PER URINAL , VSS STABLE , WILL ENDORSE TO PM NURSE FOR CONTINUITY OF CARE .
--- NOTE | 2020-02-07 19:10 | NUR ---
RN OPENING NOTES: Rec'd pt in bed, A&Ox2-3, Slovenian speaking. On 4LPM NC tolerating well. No SOB or respiratory distress noted at this time. RFA #20 patent and flushed. Dressing c/d/i. Pt ambulatory w/ assist. No pain noted at this time. Safety measures in place. Will continue to monitor. Addendum: 02/07/20 at 1926 by GERALDINE MORTENSEN RN On isolation precautions for positive Covid.
[2020-02-07 20:00] VITALS: BP 144/90
[2020-02-07] MEDS: TAMSULOSIN 0.4 MG CAP.SR.24H PO SCH (21:09)
[2020-02-07] MEDS: ENOXAPARIN SODIUM 40 MG/0.4 ML DISP.SYRIN SQ SCH (21:11)
[2020-02-08 04:00] VITALS: BP 139/93
[2020-02-08 04:50] LABS: BASOPHILS % (AUTO) 0.4 % (0.0-2.0); EOSINOPHILS % (AUTO) 0.7 % (0.0-6.0); HEMATOCRIT 40 % (39-51); HEMOGLOBIN 13.7 g/dL (13.5-17.5); LYMPHOCYTES # (AUTO) 0.7 /CMM (0.8-4.8); LYMPHOCYTES % (AUTO) 6.4 % (20.0-44.0); MEAN CORPUSCULAR HGB CONC 34 g/dl (31.0-36.0); MEAN CORPUSCULAR VOLUME 85 fL (80-96); MONOCYTES # (AUTO) 1.3 /CMM (0.1-1.30); MONOCYTES % (AUTO) 11.3 % (2.0-12.0); NEUTROPHILS # (AUTO) 9.1 /CMM (1.8-8.9); NEUTROPHILS % (AUTO) 81.2 % (43.0-81.0); PLATELET COUNT (AUTO) 204 /CMM (150-450); RED BLOOD CELL COUNT(AUTO) 4.75 MIL/uL (4.5-6.0); WHITE BLOOD COUNT (AUTO) 11.2 K/uL (4.3-11.0)
[2020-02-08 05:11] LABS: ALBUMIN 2.4 g/dL (3.4-5.0); BILIRUBIN,TOTAL 0.4 mg/dL (0.2-1.0); CALCIUM, SERUM 8.3 mg/dL (8.5-10.1); CREATININE 0.9 mg/dL (0.6-1.3); PHOSPHORUS 3.1 mg/dL (2.5-4.9)
--- NOTE | 2020-02-08 06:57 | NUR ---
RN CLOSING NOTES: Pt remains stable throughout shift. No acute changes noted throughout shift. Remains on isolation for positive Covid. Remains on 4LPM NC tolerating well. No SOB or resp distress noted throughout shift. RFA #20 patent and flushed. Dressing c/d/i. All meds given as ordered. Kept clean/dry. Safety measures in place. Will endorse to am nurse for BOLA.
--- NOTE | 2020-02-08 07:30 | NUR ---
rn notes received patient asleep, alert and oriented x2-3, able to make needs known. expresses self best in mosotho. with supplemental oxygen via nasal cannula with o2 at 4lpm. sating fine as seen on the monitor. no shortness of breath. no complaints of pain of any kind. iv access on the left forearm g20 in place and patent, saline lock. patient ambulatory. encourage to call for help/ assistance. encourage/verbalize feelings and concerns. safety measures observed and maintained. call light placed within reach. will continue to monitor patient accordingly and implement isolation for covid.
[2020-02-08 08:00] VITALS: BP 154/97
[2020-02-08] MEDS: ATORVASTATIN 10 MG TABLET PO SCH (09:55)
[2020-02-08] MEDS: PHENYTOIN EXTENDED RELEASE 100 MG CAPSULE PO SCH ×2 (09:55→21:00)
[2020-02-08] MEDS: ASPIRIN 325 MG TABLET PO SCH (09:55)
[2020-02-08] MEDS: SPIRONOLACTONE 25 MG TABLET PO SCH (10:16)
[2020-02-08] MEDS: METOPROLOL TARTRATE 25 MG TABLET PO SCH ×2 (10:17→21:02)
[2020-02-08] MEDS: CARVEDILOL 12.5 MG TABLET PO SCH ×2 (10:17→21:01)
[2020-02-08] MEDS: LEVOFLOXACIN 750 MG /D5W 150ML 750 MG in PREMIX 1 EA IV SCH (10:18)
[2020-02-08 11:24] LABS: C-REACTIVE PROTEIN 31.6 mg/dL (0.0-0.9)
[2020-02-08] MEDS: CHOLECALCIFEROL 1,000 UNIT TABLET (VIT D3) PO SCH (11:36)
[2020-02-08] MEDS: DEXAMETHASONE 4 MG TABLET PO SCH (11:36)
[2020-02-08] MEDS: ASCORBIC ACID 500 MG TABLET PO SCH (11:36)
[2020-02-08] MEDS: ZINC SULFATE 220 MG CAPSULE PO SCH (11:37)
[2020-02-08 12:00] VITALS: BP 141/90
[2020-02-08] MEDS ORDERED: DEXAMETHASONE 4 MG TABLET PO SCH (12:00)
[2020-02-08 14:33] LABS: ALBUMIN 2.2 g/dL (3.4-5.0); BILIRUBIN,DIRECT 0.2 mg/dL (0.0-0.2); BILIRUBIN,TOTAL 0.3 mg/dL (0.2-1.0); TOTAL PROTEIN, SERUM 7.9 g/dL (6.4-8.2)
[2020-02-08] MEDS ORDERED: INVESTIGATIONAL MED MISC 1 EA in IV NS 0.9% 250 ML IV ONE (15:00)
[2020-02-08 16:00] VITALS: BP 154/98
--- NOTE | 2020-02-08 19:15 | NUR ---
RN OPENING NOTES: RECEIVED PT A/OX 2-3; KAZAKH SPEAKING.PATIENT IN BED RESTING COMFORTABLY. PATIENT IN NO S/SX OF ACUTE DISTRESS AT THIS TIME. NO SOB NOTED. PATIENT'S BREATHING IS EVEN AND UNLABORED. PATIENT IS ON 4 L OF OXYGEN VIA NC ; TOLERATING WELL. PATIENT ON MED SURG STATUS. NOTED IV LINE ON L FA # 20 ; PATENT, INTACT AND FLUSHING WELL NO S/S OF INFECTION OR INFILTRATION; NO RUNNING IV FLUID AT THIS TIME. WITH URINAL AT BEDSIDE. PATIENT ON [facility] SOFT DIET. SAFETY MEASURES HAVE BEEN PROVIDED AND IMPLEMENTED. PATIENT BED ALARM IS ON. HEAD OF BED ELEVATED. BED IS LOCKED, IN LOWEST POSITION AND SIDE RAILS UP. CALL LIGHT WITHIN REACH OF THE PATIENT. ISOLATION PRECAUTIONS IN PLACE. WILL CONTINUE TO MONITOR AND REASSESS FOR ANY CHANGES.
--- NOTE | 2020-02-08 19:22 | NUR ---
RN NOTES ENDORSED PATIENT FOR BOLA. NO ACUTE CHANGES WITHIN THE SHIFT. ENDORSED CONVALESCENT PLASMA PAPER WORKS TO INCOMING NURSE TO BE SIGNED BY MD AND TO BE FAXED TO LAB. ALL NURSING NEEDS ATTENDED AND MET
[2020-02-08 20:00] VITALS: BP 155/92
[2020-02-08] MEDS: TAMSULOSIN 0.4 MG CAP.SR.24H PO SCH (21:17)
[2020-02-08] MEDS: ENOXAPARIN SODIUM 40 MG/0.4 ML DISP.SYRIN SQ SCH (22:44)
[2020-02-09] VITALS: BP 151/89
--- NOTE | 2020-02-09 | NUR ---
MS RN NOTES RECEIVED PATIENT TRANSFER FROM ICU, ALERT AND ORIENTED X 2-3. VERBALLY RESPONSIVE LUXEMBOURGISH SPEAKING AAND ABLE TO FOLLOW DIRECTIONS. BREATHING REGULAR AND UNLABORED ON OXYGEN AT 4L/MIN VIA NASAL CANNULA. LEFT FOREARM G20 IV LINE INTACT AND PATENT, FLUSHING WELL WITH NO BLEEDING OR S/S OF INFILTRATION NOTED. DENIES SUICIDAL IDEATION AND PAIN/DISCOMFORT AT THIS TIME. ON ISOLATION FOR COVID19, PROPER ISOLATION PRECAUTIONS AND HAND WASHING OBSERVED. BED LOW AND LOCKED ON SEMI FOWLERS POSITION. CALL LIGHT IN REACH. WILL CONTINUE TO MONITOR.
--- NOTE | 2020-02-09 00:40 | NUR ---
RN NOTES REPORT GIVEN TO CINDY. PATIENT IS ALERT AND ORIENTED X4 ANGOLAN SPEAKING. PATIENT MOST RECENT V/S TAKEN AND RECORDED BP(155/92) T (97.5) HR (68) RR (17) O2 SAT( 97%). PATIENT ON 4L OF O2 VIA NC, TOLERATES WELL .WITH IV LINE @ LA #20 ;NO RUNNING IV FLUID UPON TRANSFER. PATIENT TRANSFERRED TO MEDICAL SURGICAL ROOM 200 VIA MEDICAL BED. ALSO ENDORSED CONVALESCENT PLASMA PAPER WORKS TO RECEIVING NURSE TO BE SIGNED BY MD AND TO BE FAXED TO LAB. ALL PATIENT BELONGINGS TRANSFERRED WITH THE PATIENT. PATIENT SAFETY WAS MAINTAINED, NENA JIMENEZ RECEIVED THE PATIENT AND WILL CONTINUE CARE.
[2020-02-09 04:00] VITALS: BP 145/91
--- NOTE | 2020-02-09 06:30 | NUR ---
MS RN CLOSING NOTES PATIENT IN BED, ALERT AND ORIENTED X 2-3. AFEBRILE WITH NO S/S OF DISTRESS OBSERVED. LEFT FOREARM G20 IV LINE PATENT AND FLUSHING WELL. DENIES PAIN/DISCOMFORT AT THIS TIME. MAINTAINED ON ISOLATION FOR COVID19, PROPER ISOLATION PRECAUTIONS AND HAND WASHING OBSERVED. BED LOW AND LOCKED ON SEMI FOWLERS POSITION. CALL LIGHT IN REACH. WILL ENDORSE TO MORNING SHIFT FOR BOLA.
--- NOTE | 2020-02-09 07:15 | NUR ---
RN OPENING NOTES RECEIVED PATIENT IN BED, AWAKE ALERT AND ORIENTED X 3. SLOVENIAN SPEAKING ONLY. NO CARDIAC OR RESPIRATORY DISTRESS NOTED. NO SOB NOTED. BREATHING REGULAR AND UNLABORED ON OXYGEN AT 4L/MIN VIA NASAL CANNULA. IV ACCESS NOTED ON LEFT FOREARM G20 IV LINE INTACT AND PATENT, FLUSHING WELL WITH NO BLEEDING OR S/S OF INFILTRATION NOTED. MAINTAINED ON ISOLATION FOR COVID19, PROPER ISOLATION PRECAUTIONS AND HAND WASHING OBSERVED. BED LOW AND LOCKED ON SEMI FOWLERS POSITION. CALL LIGHT IN REACH. WILL CONTINUE TO MONITOR. Addendum: 02/09/20 at 1619 by REGGIE EVANS RN ALSO RECEIVED ENDORSEMENT FROM PURCHASING/RECEIVING NURSE THAT INVESTIGATIONAL DRUG FORM FOR REMDISIVIR NEEDS TO BE SIGNED BY DR. ROBB.
[2020-02-09 08:00] VITALS: BP 132/82
[2020-02-09 08:01] LABS: BASOPHILS % (AUTO) 0.2 % (0.0-2.0); EOSINOPHILS % (AUTO) 1.7 % (0.0-6.0); HEMATOCRIT 39 % (39-51); HEMOGLOBIN 13.4 g/dL (13.5-17.5); LYMPHOCYTES # (AUTO) 0.7 /CMM (0.8-4.8); LYMPHOCYTES % (AUTO) 6.4 % (20.0-44.0); MEAN CORPUSCULAR HGB CONC 34 g/dl (31.0-36.0); MEAN CORPUSCULAR VOLUME 85 fL (80-96); MONOCYTES # (AUTO) 1.3 /CMM (0.1-1.30); MONOCYTES % (AUTO) 12.6 % (2.0-12.0); NEUTROPHILS # (AUTO) 8.2 /CMM (1.8-8.9); NEUTROPHILS % (AUTO) 79.1 % (43.0-81.0); PLATELET COUNT (AUTO) 223 /CMM (150-450); WHITE BLOOD COUNT (AUTO) 10.3 K/uL (4.3-11.0)
[2020-02-09 08:06] LABS: COMPLEMENT C3, SERUM 191 mg/dL (82-167); COMPLEMENT C4, SERUM 55 mg/dL (14-44)
[2020-02-09] MEDS: ASCORBIC ACID 500 MG TABLET PO SCH (08:13)
[2020-02-09] MEDS: PHENYTOIN EXTENDED RELEASE 100 MG CAPSULE PO SCH ×2 (08:14→21:05)
[2020-02-09] MEDS: METOPROLOL TARTRATE 25 MG TABLET PO SCH ×2 (08:14→21:05)
[2020-02-09] MEDS: DEXAMETHASONE 4 MG TABLET PO SCH (08:14)
[2020-02-09] MEDS: SPIRONOLACTONE 25 MG TABLET PO SCH (08:14)
[2020-02-09] MEDS: ASPIRIN 325 MG TABLET PO SCH (08:14)
[2020-02-09] MEDS: ZINC SULFATE 220 MG CAPSULE PO SCH (08:14)
[2020-02-09] MEDS: CHOLECALCIFEROL 1,000 UNIT TABLET (VIT D3) PO SCH (08:14)
[2020-02-09] MEDS: CARVEDILOL 12.5 MG TABLET PO SCH ×2 (08:15→21:04)
[2020-02-09] MEDS: ATORVASTATIN 10 MG TABLET PO SCH (08:15)
[2020-02-09 08:24] LABS: ALBUMIN 2.2 g/dL (3.4-5.0); BILIRUBIN,TOTAL 0.4 mg/dL (0.2-1.0); CALCIUM, SERUM 8.6 mg/dL (8.5-10.1); CREATININE 0.8 mg/dL (0.6-1.3); MAGNESIUM 2.5 mg/dL (1.8-2.4); PHOSPHORUS 2.7 mg/dL (2.5-4.9); POTASSIUM 4.1 mmol/L (3.5-5.1)
[2020-02-09] MEDS: LEVOFLOXACIN 750 MG /D5W 150ML 750 MG in PREMIX 1 EA IV SCH (09:13)
[2020-02-09 11:28] LABS: *ANA ANTI-CENTROMERE B AB <0.2 AI (0.0-0.9); *ANA ANTI-DNA(DS) AB, QN 1 IU/mL (0-9); *ANA ANTI-JO-1 <0.2 AI (0.0-0.9); *ANA ANTICHROMATIN ANTIBODY 0.2 AI (0.0-0.9); *ANA RNP ANTIBODIES 1.4 AI (0.0-0.9); *ANA SJOGREN'S ANTI-SS-A <0.2 AI (0.0-0.9); *ANA SJOGREN'S ANTI-SS-B <0.2 AI (0.0-0.9); *ANAANTI-SCLERODERMA-70 AB <0.2 AI (0.0-0.9); *ANASMITH AB <0.2 AI (0.0-0.9)
--- NOTE | 2020-02-09 14:45 | NUR ---
BP CHECK BP CHECK DONE PRIOR TO INVESTIGATIONAL DRUG ADMINISTRATION. NOTED AT 144/72 HR 67.
[2020-02-09] MEDS: INVESTIGATIONAL MED MISC 1 EA in IV NS 0.9% 250 ML IV SCH (15:01)
--- NOTE | 2020-02-09 15:10 | NUR ---
INVEST DRUG INVESTIGATIONAL DRUG CURRENTLY INFUSING. PT HAS NO COMPLAINTS OF HEADACHES, NO NAUSEA OR VOMITING. BP RE-CHECKED, NOTED AT 164/66 HR 70. PT TOLERATING INFUSION WELL.
--- NOTE | 2020-02-09 15:45 | NUR ---
PLASMA UPON REVIEW OF PTS ORDERS, NOTED THAT PT HAD ORDERS YESTERDAY FOR PLASMA. CHECKED BLOOD BANK ON EMR, AND IT SAYS THAT PLASMA HAS NOT BEEN TRANSFUSED YET. I CALLED THE BLOOD BANK TO ASK IF THE PLASMA IS AVAILABLE, AND ACCORDING TO THEA FROM BLOOD BANK, DR. ROBB NEEDS TO SIGN THE INVESTIGATIONAL DRUG FORM FIRST BEFORE [facility] CAN DISPENSE IT. I CONFIRMED WITH BLOOD BANK THAT THIS FORM WAS INDEED FOR THE CONV PLASMA AND NOT THE REMDISIVIR. CALLED DR. ROBB, SINCE HE WAS THE ORDERING DOCTOR, ACCORIDNG TO DR. ROBB HE IS ON A HOLIDAY.
[2020-02-09 16:00] VITALS: BP 172/92
--- NOTE | 2020-02-09 16:00 | NUR ---
DARYL CALLED DR. MENJIVAR (HOSPITALIST) AND ASKED IF HE CAN SIGN THE INVESTIGATIONAL DRUG FORM. HE SAID HE WILL SIGN. STATED HE WILL BE BACK TO THE HOSPITAL IN A BIT. AND WILL SIGN IT WHEN HE COMES BACK.
[2020-02-09] MEDS: CLONIDINE HCL 0.1 MG TABLET PO PRN (16:36)
--- NOTE | 2020-02-09 18:00 | NUR ---
PLASMA SENT MESSAGE TO DR. MENJIVAR AGAIN TO SIGN THE INV DRUG FORM FOR PLASMA SO THAT WE CAN FAX BACK TO LAB. NO RESPONSE YET. ALSO OFFERED MD THAT I CAN TAKE THE FORM TO HIM SO THAT HE CAN SIGN IT. NO RESPONSE YET.
--- NOTE | 2020-02-09 18:32 | NUR ---
RN CLOSING NOTES PATIENT IN BED, AWAKE ALERT AND ORIENTED X 3. CENTRAL AFRICAN SPEAKING ONLY. NO CARDIAC OR RESPIRATORY DISTRESS NOTED. NO SOB NOTED. BREATHING REGULAR AND UNLABORED ON OXYGEN AT 4L/MIN VIA NASAL CANNULA. IV ACCESS NOTED ON LEFT FOREARM G20 IV LINE INTACT AND PATENT, FLUSHING WELL WITH NO BLEEDING OR S/S OF INFILTRATION NOTED. ALL NEEDS MET AND ATTENDED. ALL DUE MEDS ADMINISTERED. NO ASE NOTED. MAINTAINED ON ISOLATION FOR COVID19, PROPER ISOLATION PRECAUTIONS AND HAND WASHING OBSERVED. BED LOW AND LOCKED ON SEMI FOWLERS POSITION. CALL LIGHT IN REACH. WILL CONTINUE TO MONITOR.
--- NOTE | 2020-02-09 19:02 | NUR ---
MS RN OPENING NOTES: RECEIVED PATIENT IN BED, AWAKE, A/O X3. NO S/S OF DOSTRESS NOTED.HOB ELEVATED. CALL LIGHT WITHIN REACH. BED IN LOWEST AND LOCKED POSITION. BED ALARM ON. NO COMPLAIN OF PAIN. URINAL AT THE BEDSIDE. BEDSIDE COMMODE NEAR THE BED. INSTRUCTED PATIENT TO CALL FOR ASSISTANCE WHEN OOB, PATIENT VERBALIZED UNDERSTANDING.
--- NOTE | 2020-02-09 19:10 | NUR ---
PLASMA ENDORSE TO FENCE INSTALLER FOREMAN NURSE TO F/U WITH , HOSPITALIST OR [place] MACHINE OPERATOR FOR DR. ROBB TO SIGN THE INV DRUG FORM SO THAT PLASMA CAN BE DISPENSED.
[2020-02-09 20:00] VITALS: BP 154/89
[2020-02-09] MEDS: ENOXAPARIN SODIUM 40 MG/0.4 ML DISP.SYRIN SQ SCH (21:04)
[2020-02-09] MEDS: TAMSULOSIN 0.4 MG CAP.SR.24H PO SCH (21:05)
--- NOTE | 2020-02-10 05:59 | NUR ---
MS RN CLOSING NOTES: PATIENT IN BED, ASLEEP, NO S/S OF DISTRESS NOTED.NO COMPLAIN OF PAIN. CALL LIGHT WITHIN REACH. BED ALARM ON. BED IN LOWEST AND LOCKED POSITION. IND FORM NEEDS TO BE SIGNED BY THE MD CITRUS FRUIT COLORER OF TODAY FOR THE PLASMA, FORMS ATTACHED TO THE CHART, WILL ENDORSE TO THE DAY SHIFT RN.
--- NOTE | 2020-02-10 06:18 | NUR ---
INFORMED REPULPING SUPERVISOR SULAIMAN RE: IND FORM THAT NEEDS TO BE SIGNED BEFORE CONVALESCENT PLASMA WILL BE RELEASED FROM [facility]. SHE REPLIED, DAY SHIFT WILL INFORM THE DAY PROVIDER FROM [facility].
--- NOTE | 2020-02-10 07:30 | NUR ---
RN NOTE THE PATIENT IS RECEIVED IN BED. THE PATIENT IS ALERT AND ORIENTED X3. DENIES PAIN. RECEIVING OXYGEN AT 3L/MIN VIA NASAL CANNULA AND DENIES SOB. LFA G 22 PATENT AND SALINE LOCKED. BED LOW AND LOCKED. SIDE RAILS UP X2. CALL LIGHT WITHIN REACH. WILL CONTINUE TO MONITOR.
[2020-02-10 07:58] LABS: BASOPHILS # (AUTO) 0.1 /CMM (0.0-0.2); BASOPHILS % (AUTO) 0.8 % (0.0-2.0); EOSINOPHILS % (AUTO) 1.5 % (0.0-6.0); HEMATOCRIT 39 % (39-51); HEMOGLOBIN 13.5 g/dL (13.5-17.5); LYMPHOCYTES # (AUTO) 0.6 /CMM (0.8-4.8); LYMPHOCYTES % (AUTO) 7.2 % (20.0-44.0); MEAN CORPUSCULAR HGB CONC 34 g/dl (31.0-36.0); MEAN CORPUSCULAR VOLUME 85 fL (80-96); MONOCYTES # (AUTO) 1.3 /CMM (0.1-1.30); MONOCYTES % (AUTO) 14.3 % (2.0-12.0); NEUTROPHILS # (AUTO) 6.8 /CMM (1.8-8.9); NEUTROPHILS % (AUTO) 76.2 % (43.0-81.0); PLATELET COUNT (AUTO) 264 /CMM (150-450)
[2020-02-10 08:00] VITALS: BP 155/74
[2020-02-10 08:25] LABS: ALBUMIN 2.2 g/dL (3.4-5.0); BILIRUBIN,DIRECT 0.2 mg/dL (0.0-0.2); BILIRUBIN,TOTAL 0.3 mg/dL (0.2-1.0); CALCIUM, SERUM 8.7 mg/dL (8.5-10.1); CREATININE 0.8 mg/dL (0.6-1.3); POTASSIUM 3.9 mmol/L (3.5-5.1); TOTAL PROTEIN, SERUM 7.8 g/dL (6.4-8.2)
[2020-02-10] MEDS: POTASSIUM CHLORIDE 20 MEQ TAB.PRT.SR PO SCH ×3 (08:52→12:24)
[2020-02-10] MEDS: CHOLECALCIFEROL 1,000 UNIT TABLET (VIT D3) PO SCH (08:52)
[2020-02-10] MEDS: FUROSEMIDE 40 MG/4 ML VIAL IV SCH ×3 (08:52→17:04)
[2020-02-10] MEDS: ASPIRIN 325 MG TABLET PO SCH (08:52)
[2020-02-10] MEDS: DEXAMETHASONE 4 MG TABLET PO SCH (08:52)
[2020-02-10] MEDS: ZINC SULFATE 220 MG CAPSULE PO SCH (08:52)
[2020-02-10] MEDS: PHENYTOIN EXTENDED RELEASE 100 MG CAPSULE PO SCH ×2 (08:52→20:38)
[2020-02-10] MEDS: ATORVASTATIN 10 MG TABLET PO SCH (08:53)
[2020-02-10] MEDS: ASCORBIC ACID 500 MG TABLET PO SCH (08:53)
[2020-02-10] MEDS: SPIRONOLACTONE 25 MG TABLET PO SCH (08:53)
[2020-02-10] MEDS: CARVEDILOL 12.5 MG TABLET PO SCH ×2 (08:54→20:37)
[2020-02-10] MEDS: LEVOFLOXACIN 750 MG /D5W 150ML 750 MG in PREMIX 1 EA IV SCH (10:48)
[2020-02-10] MEDS: INVESTIGATIONAL MED MISC 1 EA in IV NS 0.9% 250 ML IV SCH (15:54)
--- NOTE | 2020-02-10 17:26 | NUR ---
TONY NOTE PAGED DR MENJIVAR TO INFORM THE PATIENT HAVING HEMATURIA. THE PATIENT URINATED 300 ML AND THE URINE IS DARK RED WITH SOME CLOTS. THE PATIENT DENIES ANY PAIN/DISCOMFORT. PELVIC AREA SOFT AND NON-DISTENDED. NO BLADDER DISTENSION NOTED. WILL WAIT MD RESPOND. ACCORDING TO THE PATIENT IT IS THE FIRST TIME SEE BLOOD IN HIS URINE. Addendum: 02/10/20 at 1730 by ALYSE ARELLANO RN TONY NOTE DR MENJIVAR MADE AWARE. RECEIVED AN NEW ORDER OF STAT CBC. NOTED AND CARRIED OUT. Addendum: 02/10/20 at 1832 by ALYSE ARELLANO RN TONY MENJIVAR IS MADE AWARE OF CBC RESULT AND PER MD NO NEW ORDERS.
[2020-02-10 18:07] LABS: BASOPHILS # (AUTO) 0.2 /CMM (0.0-0.2); EOSINOPHILS % (AUTO) 0.6 % (0.0-6.0); HEMATOCRIT 39 % (39-51); HEMOGLOBIN 13.3 g/dL (13.5-17.5); LYMPHOCYTES # (AUTO) 0.6 /CMM (0.8-4.8); LYMPHOCYTES % (AUTO) 7.7 % (20.0-44.0); MEAN CORPUSCULAR HGB CONC 34 g/dl (31.0-36.0); MEAN CORPUSCULAR VOLUME 86 fL (80-96); MONOCYTES # (AUTO) 1.1 /CMM (0.1-1.30); MONOCYTES % (AUTO) 14.2 % (2.0-12.0); NEUTROPHILS # (AUTO) 6.1 /CMM (1.8-8.9); NEUTROPHILS % (AUTO) 75.5 % (43.0-81.0); PLATELET COUNT (AUTO) 286 /CMM (150-450); RED BLOOD CELL COUNT(AUTO) 4.55 MIL/uL (4.5-6.0); WHITE BLOOD COUNT (AUTO) 8.1 K/uL (4.3-11.0)
--- NOTE | 2020-02-10 18:32 | NUR ---
RN NOTE THE PATIENT IS ALERT AND ORIENTED X3. DENIES SOB. RECEIVING OXYGEN AT 3L/MIN VIA NASAL CANNULA AND SATURATION IS AT 95%. DENIES PAIN. NO HEMATURIA AT THIS TIME. THE PATIENT IN NO APPARENT DISTRESS. LFA G 22 PATENT AND SALINE LOCKED. BED LOW AND LOCKED. SIDE RAILS UP X2. CALL LIGHT WITHIN REACH. WILL ENDORSE TO SUMO WRESTLER.
--- NOTE | 2020-02-10 19:30 | NUR ---
MS RN OPENING NOTES RECEIVED PATIENT FROM MORNING SHIFT, ALERT AND ORIENTED X 3. VERBALLY RESPONSIVE OCCITAN SPEAKING AND ABLE TO FOLLOW DIRECTIONS. BREATHING REGULAR AND UNLABORED ON OXYGEN AT 4L/MIN VIA NASAL CANNULA. LEFT FOREARM G22 IV LINE INTACT AND PATENT, FLUSHING WELL WITH NO BLEEDING OR S/S OF INFILTRATION NOTED. DENIES SUICIDAL IDEATION AND PAIN/DISCOMFORT AT THIS TIME. ON ISOLATION FOR COVID19, PROPER ISOLATION PRECAUTIONS AND HAND WASHING OBSERVED. BED LOW AND LOCKED ON SEMI FOWLERS POSITION. CALL LIGHT IN REACH. WILL CONTINUE TO MONITOR.
[2020-02-10 20:00] VITALS: BP 161/86
[2020-02-10 21:00] VITALS: BP 152/81
[2020-02-10] MEDS: TAMSULOSIN 0.4 MG CAP.SR.24H PO SCH (21:38)
[2020-02-10] MEDS: ENOXAPARIN SODIUM 40 MG/0.4 ML DISP.SYRIN SQ SCH (21:49)
--- NOTE | 2020-02-10 22:00 | NUR ---
MS RN NOTES DUE LOVENOX INJECTION NOT GIVEN PER PERSONAL INVESTMENT ADVISER SOPHY HOLD IT FOR TONIGHT AND ASK HOSPITALIST TOMORROW MORNING IF HE/SHE STILL WANTS TO RESUME THE ORDER.
[2020-02-11] MEDS: LEVOFLOXACIN (250MG) 250 MG TABLET PO SCH (05:56)
--- NOTE | 2020-02-11 06:25 | NUR ---
MS RN CLOSING NOTES PATIENT IN BED, ALERT AND ORIENTED X 3. AFEBRILE WITH NO S/S OF DISTRESS OBSERVED. LEFT FOREARM G20 IV LINE PATENT AND FLUSHING WELL. DENIES PAIN/DISCOMFORT AT THIS TIME. MAINTAINED ON ISOLATION FOR COVID19, PROPER ISOLATION PRECAUTIONS AND HAND WASHING OBSERVED. BED LOW AND LOCKED ON SEMI FOWLERS POSITION. CALL LIGHT IN REACH. WILL ENDORSE TO MORNING SHIFT FOR BOLA.
[2020-02-11 08:00] VITALS: BP 130/100
--- NOTE | 2020-02-11 08:00 | NUR ---
RN NOTES RECEIVED PATIENT IN THE ROOM, DROPLET ISOLATION, SITTING EDGE OF THE BED, SLOVENIAN SPEAKER, A/O X3, NO SOB, REFUSED PAIN AT THIS TIME. SCHEDULED MEDICATION ADMINISTERED V/S WNL, IV ACCESS ON LEFT FA INTACT. PATIENT STATE "I WOULD LIKE TO GO WORK". PATIENT USING URINAL, , FLUID RESTRICTION 1000ML DAILY. SEEN WAREHOUSE DISTRIBUTION MANAGER Dr ROBB, NO NEW ORDERS, CONTINUED MONITORING.
[2020-02-11 08:59] LABS: BASOPHILS # (AUTO) 0.1 /CMM (0.0-0.2); BASOPHILS % (AUTO) 0.7 % (0.0-2.0); EOSINOPHILS % (AUTO) 2.4 % (0.0-6.0); HEMATOCRIT 40 % (39-51); HEMOGLOBIN 13.5 g/dL (13.5-17.5); LYMPHOCYTES # (AUTO) 0.7 /CMM (0.8-4.8); LYMPHOCYTES % (AUTO) 9.2 % (20.0-44.0); MEAN CORPUSCULAR HGB CONC 34 g/dl (31.0-36.0); MEAN CORPUSCULAR VOLUME 86 fL (80-96); MONOCYTES # (AUTO) 1.3 /CMM (0.1-1.30); MONOCYTES % (AUTO) 16.2 % (2.0-12.0); NEUTROPHILS # (AUTO) 5.6 /CMM (1.8-8.9); NEUTROPHILS % (AUTO) 71.5 % (43.0-81.0); PLATELET COUNT (AUTO) 300 /CMM (150-450); RED BLOOD CELL COUNT(AUTO) 4.65 MIL/uL (4.5-6.0); WHITE BLOOD COUNT (AUTO) 7.8 K/uL (4.3-11.0)
[2020-02-11] MEDS: ASPIRIN 325 MG TABLET PO SCH (09:31)
[2020-02-11] MEDS: DEXAMETHASONE 4 MG TABLET PO SCH (09:31)
[2020-02-11] MEDS: ASCORBIC ACID 500 MG TABLET PO SCH (09:31)
[2020-02-11] MEDS: SPIRONOLACTONE 25 MG TABLET PO SCH (09:32)
[2020-02-11] MEDS: ZINC SULFATE 220 MG CAPSULE PO SCH (09:32)
[2020-02-11] MEDS: CARVEDILOL 12.5 MG TABLET PO SCH ×2 (09:32→21:18)
[2020-02-11] MEDS: ATORVASTATIN 10 MG TABLET PO SCH (09:32)
[2020-02-11] MEDS: CHOLECALCIFEROL 1,000 UNIT TABLET (VIT D3) PO SCH (09:32)
[2020-02-11] MEDS: PHENYTOIN EXTENDED RELEASE 100 MG CAPSULE PO SCH ×2 (09:32→21:17)
[2020-02-11 10:33] LABS: ALBUMIN 2.2 g/dL (3.4-5.0); BILIRUBIN,TOTAL 0.3 mg/dL (0.2-1.0); CREATININE 0.9 mg/dL (0.6-1.3); MAGNESIUM 2.4 mg/dL (1.8-2.4); PHOSPHORUS 3.8 mg/dL (2.5-4.9); POTASSIUM 4.3 mmol/L (3.5-5.1); TOTAL PROTEIN, SERUM 7.9 g/dL (6.4-8.2)
--- NOTE | 2020-02-11 12:00 | NUR ---
RN NOTES PATIENT ON O2 3LNC, NO ACUTE RESPIRATORY DISTRESS. PATIENT STATE 'I WANTED TO GO HOME ' EDUCATED PATIENT ABUT ISOLATION, DUE MEDICATION ADMINISTERED, PATIENT TOLERATED LUNCH WELL.
[2020-02-11] MEDS: INVESTIGATIONAL MED MISC 1 EA in IV NS 0.9% 250 ML IV SCH (15:39)
[2020-02-11 16:00] VITALS: BP 164/87
--- NOTE | 2020-02-11 18:00 | NUR ---
RN NOTES PATIENT HAS N ACUTE RESPIRATORY DISTRESS, V/S WNL, USING URINAL. DUE MEDICATION ADMINISTERED. ENDORSED ONCOMING NURSE FOLLOW PLAN OF CARE.
--- NOTE | 2020-02-11 19:32 | NUR ---
MS RN OPENING NOTES PATIENT RESTING IN BED COMFORTABLY; A/OX3, IVORIAN SPEAKING; PATIENT ON 3LPM VIA NASAL CANNULA; TOLERATING WELL, NO SOB NOTED; BREATHING EVEN AND UNLABORED; L FA 22# S/L, INTACT AND PATENT; ISOLATION PRECAUTIONS MAINTAINED; SAFETY PRECAUTIONS IMPLEMENTED; BED LOCKED IN LOW POSITION; SIDE RAILSX2; CALL LIGHT WITHIN REACH; WILL CONT TO MONITOR
[2020-02-11 20:00] VITALS: BP 156/82
[2020-02-11] MEDS: TAMSULOSIN 0.4 MG CAP.SR.24H PO SCH (21:17)
[2020-02-11] MEDS: ENOXAPARIN SODIUM 40 MG/0.4 ML DISP.SYRIN SQ SCH (21:18)
--- NOTE | 2020-02-11 21:27 | NUR ---
MS RN NOTES PATIENT'S GRANDSON DROPPED OFF CELLPHONE PERCHER, PATIENTS PHONE CURRENTLY CHARGING; DAUGHTER IS AWARE; PATIENT REPORTED TO BE FEELING OKAY AND WOULD LIKE TO GET SOME REST; WILL CONT TO MONITOR
[2020-02-12 01:06] LABS: RENIN, PLASMA 2.51 ng/mL/hr (0.167-5.380)
[2020-02-12] MEDS: LEVOFLOXACIN (250MG) 250 MG TABLET PO SCH (05:00)
--- NOTE | 2020-02-12 05:37 | NUR ---
MS RN NOTES PATIENT STATED HE DOES NOT WANT TO BE BOTHERED AND THAT HE DOES NOT NEED TO BE CHANGED; WILL INFORM DAY SHIFT; PATIENT ABLE TO MAKE NEEDS KNOWN; PATIENT ABLE TO USE URINAL/BSC NEEDED; PATIENT AWARE OF FLUID RESTRICTION OF 1000/DAY; WILL CONT TO MONITOR
--- NOTE | 2020-02-12 06:13 | NUR ---
MS RN NOTES PER LAB, CONVALESCENT PLASMA AVAILABLE; INFORM THEM IF ABLE TO COMPUTER SUPPORT SPECIALIST INSTRUCTOR CONVALESCENT PLASMA, IT HAS TO BE THAWED; WILL INFORM DAY SHIFT;
--- NOTE | 2020-02-12 06:30 | NUR ---
MS RN CLOSING NOTES PATIENT RESTING IN BED COMFORTABLY; A/OX3, SOUTH AFRICAN SPEAKING; PATIENT ON 2LPM VIA NC, TOLERATING WELL; NO SOB NOTED, COUGH NOTED WITH MINIMAL SPUTUM AT THIS TIME; PATIENT ABLE TO MAKE NEEDS KNOWN; PATIENT SLEPT MOST OF SHIFT; PATIENT DOES NOT LIKE BEING BOTHERED MUCH; PATIENT AMBULATORY WITH ASSIST, STEADY GAIT, ABLE TO USE URINAL/BEDSIDE COMMODE ON HIS OWN; L FA # 22 INTACT AND PATENT; FLUSHING WELL; NO S/S OF REDNESS OR INFILTRATION NOTED; ISOLATION PRECAUTIONS MAINTAINED; FLUID RESTRICTION OF 1000ML/D, PATIENT AWARE; ALL NEEDS RENDERED; SAFETY PRECAUTIONS IMPLEMENTED; BED LOCKED IN LOW POSITION; SIDE RAILSX2; CALL LIGHT WITHIN REACH; WILL ENDORSE BOLA TO ONCOMING SHIFT
[2020-02-12 06:56] LABS: BASOPHILS # (AUTO) 0.1 /CMM (0.0-0.2); BASOPHILS % (AUTO) 0.8 % (0.0-2.0); EOSINOPHILS % (AUTO) 1.4 % (0.0-6.0); HEMATOCRIT 39 % (39-51); HEMOGLOBIN 13.2 g/dL (13.5-17.5); LYMPHOCYTES # (AUTO) 0.8 /CMM (0.8-4.8); LYMPHOCYTES % (AUTO) 9.5 % (20.0-44.0); MEAN CORPUSCULAR HGB CONC 34 g/dl (31.0-36.0); MEAN CORPUSCULAR VOLUME 86 fL (80-96); MONOCYTES # (AUTO) 1.1 /CMM (0.1-1.30); MONOCYTES % (AUTO) 13.3 % (2.0-12.0); NEUTROPHILS # (AUTO) 6.4 /CMM (1.8-8.9); PLATELET COUNT (AUTO) 319 /CMM (150-450); RED BLOOD CELL COUNT(AUTO) 4.59 MIL/uL (4.5-6.0); WHITE BLOOD COUNT (AUTO) 8.5 K/uL (4.3-11.0)
--- NOTE | 2020-02-12 06:57 | NUR ---
MS RN NOTES SPOKE WITH COMMERCIAL INSTRUCTOR SUPERVISOR IN REGARDS TO CONVALESCENT PLASMA GAME MODERATOR; PER COMMERCIAL INSTRUCTOR SUPERVISOR, WILL START TO THAW PLASMA; CONVALESCENT PLASMA & TYPE AND SCREEN MUST BE RE-ORDERED D/T ORDER AFTER 3 DAYS; PER COMMERCIAL INSTRUCTOR SUPERVISOR, PLASMA ORDERED 02/08/20, TYPE AND SCREEN RE-ORDERED; AWAITING FOR LAB TO CALL TO INFORM IT IS READY FOR GAME MODERATOR;
[2020-02-12 07:17] LABS: ALBUMIN 2.2 g/dL (3.4-5.0); BILIRUBIN,DIRECT 0.1 mg/dL (0.0-0.2); BILIRUBIN,TOTAL 0.2 mg/dL (0.2-1.0); CALCIUM, SERUM 8.7 mg/dL (8.5-10.1); CREATININE 0.9 mg/dL (0.6-1.3); TOTAL PROTEIN, SERUM 7.6 g/dL (6.4-8.2)
--- NOTE | 2020-02-12 07:20 | NUR ---
ms rn received on bed, awake,alert,oriented x3-4,not in any form of ditress, respirations even and unlabored,noted,denies pain at this time.all needs attended.
--- NOTE | 2020-02-12 07:30 | NUR ---
ms kate breakfast served,due meds given.
[2020-02-12 08:00] VITALS: BP 149/88
[2020-02-12] MEDS: PHENYTOIN EXTENDED RELEASE 100 MG CAPSULE PO SCH ×2 (08:58→21:09)
[2020-02-12] MEDS: DEXAMETHASONE 4 MG TABLET PO SCH (08:59)
[2020-02-12] MEDS: ASCORBIC ACID 500 MG TABLET PO SCH (08:59)
[2020-02-12] MEDS: SPIRONOLACTONE 25 MG TABLET PO SCH (09:00)
[2020-02-12] MEDS: CHOLECALCIFEROL 1,000 UNIT TABLET (VIT D3) PO SCH (09:00)
[2020-02-12] MEDS: ASPIRIN 325 MG TABLET PO SCH (09:00)
[2020-02-12] MEDS: ZINC SULFATE 220 MG CAPSULE PO SCH (09:00)
[2020-02-12] MEDS: ATORVASTATIN 10 MG TABLET PO SCH (09:00)
[2020-02-12] MEDS: CARVEDILOL 12.5 MG TABLET PO SCH ×2 (09:01→21:09)
--- NOTE | 2020-02-12 09:30 | NUR ---
MS RN WAS SEEN BY DR. VEENA Bass/ ORDERS MADE AND CARRIED OUT.
[2020-02-12 11:36] LABS: ABG BASE EXCESS 2.7 mmol/L; ABG OXYGEN SATURATION 94.6 % (92.0-98.5); ABG PCO2 40.8 mmHg (35.0-45.0); ABG PH 7.439 (7.350-7.450); ABG PO2 73.7 mmHg (75.0-100.0); AaDO2 27.2 mmHg; COHb 0.3 % (0.5-1.5); MetHb 0.1 % (0.0-1.5); O2Hb 94.2 % (94.0-97.0); SITE, ABG Right Brachial; VENT MODE, BG room air
[2020-02-12 14:55] VITALS: BP 140/80
[2020-02-12 15:10] VITALS: BP 133/72
[2020-02-12] MEDS: INVESTIGATIONAL MED MISC 1 EA in IV NS 0.9% 250 ML IV SCH (15:13)
[2020-02-12] MEDS: VALSARTAN 80 MG TABLET PO SCH (15:13)
[2020-02-12 15:25] VITALS: BP 130/70
[2020-02-12 16:00] VITALS: BP 145/81
--- NOTE | 2020-02-12 19:00 | NUR ---
RN OPENING NOTES Received patient A/O x4, awake on bed. On RA, no respiratory distress noted at this time. Pt denies any discomfort. Kept on bed clean, dry and comfortable. Call light within easy reach. Will continue to monitor accordingly.
[2020-02-12 20:22] VITALS: BP 144/81
[2020-02-12] MEDS: TAMSULOSIN 0.4 MG CAP.SR.24H PO SCH (21:10)
[2020-02-12] MEDS: ENOXAPARIN SODIUM 40 MG/0.4 ML DISP.SYRIN SQ SCH (21:15)
[2020-02-13] MEDS: LEVOFLOXACIN (250MG) 250 MG TABLET PO SCH (05:59)
--- NOTE | 2020-02-13 06:54 | NUR ---
RN CLOSING NOTES Pt on bed. No new complaints made. On O2 at 2LPM, saturating well. All nursing needs attended. Due meds given as ordered. Afebrile the whole shift. Kept on bed clean, dry and comfortable. Call light within easy reach. Endorsed.
--- NOTE | 2020-02-13 07:15 | NUR ---
MS RN NOTES PATIENT IN BED ALERT ORIENTED X 3. NO ACUTE DISTRESS NOTED. BREATHING UNLABORED. NO SOB NOTED. IV ACCESS PATENT AND INTACT, NO REDNESS, NO BLEEDING, NO SWELLING NOTED. SAFETY MEASURES IN PLACE, CALL LIGHT WITHIN REACH. WILL CONTINUE TO MONITOR ACCORDINGLY.
[2020-02-13 07:59] LABS: BASOPHILS # (AUTO) 0.1 /CMM (0.0-0.2); BASOPHILS % (AUTO) 0.6 % (0.0-2.0); EOSINOPHILS % (AUTO) 0.9 % (0.0-6.0); HEMATOCRIT 38 % (39-51); LYMPHOCYTES % (AUTO) 11.9 % (20.0-44.0); MEAN CORPUSCULAR HGB CONC 34 g/dl (31.0-36.0); MEAN CORPUSCULAR VOLUME 86 fL (80-96); MONOCYTES % (AUTO) 12.1 % (2.0-12.0); NEUTROPHILS # (AUTO) 6.3 /CMM (1.8-8.9); NEUTROPHILS % (AUTO) 74.5 % (43.0-81.0); PLATELET COUNT (AUTO) 321 /CMM (150-450); RED BLOOD CELL COUNT(AUTO) 4.44 MIL/uL (4.5-6.0); WHITE BLOOD COUNT (AUTO) 8.4 K/uL (4.3-11.0)
[2020-02-13 08:00] VITALS: BP 131/72
[2020-02-13 08:48] LABS: ALBUMIN 2.3 g/dL (3.4-5.0); BILIRUBIN,DIRECT 0.1 mg/dL (0.0-0.2); BILIRUBIN,TOTAL 0.2 mg/dL (0.2-1.0); CALCIUM, SERUM 8.7 mg/dL (8.5-10.1); CREATININE 0.8 mg/dL (0.6-1.3); POTASSIUM 4.3 mmol/L (3.5-5.1); TOTAL PROTEIN, SERUM 7.4 g/dL (6.4-8.2)
[2020-02-13] MEDS: ASPIRIN 325 MG TABLET PO SCH (09:14)
[2020-02-13] MEDS: CHOLECALCIFEROL 1,000 UNIT TABLET (VIT D3) PO SCH (09:14)
[2020-02-13] MEDS: DEXAMETHASONE 4 MG TABLET PO SCH (09:14)
[2020-02-13] MEDS: ZINC SULFATE 220 MG CAPSULE PO SCH (09:14)
[2020-02-13] MEDS: ATORVASTATIN 10 MG TABLET PO SCH (09:15)
[2020-02-13] MEDS: PHENYTOIN EXTENDED RELEASE 100 MG CAPSULE PO SCH ×2 (09:15→21:33)
[2020-02-13] MEDS: SPIRONOLACTONE 25 MG TABLET PO SCH (09:15)
[2020-02-13] MEDS: ASCORBIC ACID 500 MG TABLET PO SCH (09:15)
[2020-02-13] MEDS: CARVEDILOL 12.5 MG TABLET PO SCH ×2 (09:16→21:33)
[2020-02-13] MEDS: VALSARTAN 80 MG TABLET PO SCH (09:16)
--- NOTE | 2020-02-13 19:00 | NUR ---
MS RN NOTES PATIENT IN BED ALERT ORIENTED X 3 . NO ACUTE DISTRESS NOTED. BREATHING UNLABORED. NO SOB NOTED. IV ACCESS PATENT AND INTACT, NO REDNESS, NO BLEEDING, NO SWELLING NOTED. NEEDS ATTENDED AND ANTICIPATED. PATIENT URINATES TO THE BATHROOM. NO URINARY RETENTION NOTED. SAFETY MEASURES IN PLACE. CALL LIGHT WITHIN REACH. WILL ENDORSE TO NIGHT NURSE FOR CONTINUITY OF CARE.
--- NOTE | 2020-02-13 19:24 | NUR ---
MS RN: RECEIVED PATIENT Patient in bed, awake. On O2 2L via NC tolerating well, no other complaints. Voided urine, no c/o bladder discomfort. Droplet/Airborne/Contact precaution with Faces shield.
[2020-02-13 20:00] VITALS: BP 147/86
[2020-02-13 20:10] VITALS: BP 147/86
[2020-02-13] MEDS: TAMSULOSIN 0.4 MG CAP.SR.24H PO SCH (21:33)
[2020-02-13] MEDS: ENOXAPARIN SODIUM 40 MG/0.4 ML DISP.SYRIN SQ SCH (21:35)
[2020-02-14] MEDS: LEVOFLOXACIN (250MG) 250 MG TABLET PO SCH (06:22)
[2020-02-14 06:56] LABS: BASOPHILS # (AUTO) 0.2 /CMM (0.0-0.2); BASOPHILS % (AUTO) 1.9 % (0.0-2.0); EOSINOPHILS % (AUTO) 0.7 % (0.0-6.0); HEMATOCRIT 38 % (39-51); LYMPHOCYTES # (AUTO) 1.1 /CMM (0.8-4.8); MEAN CORPUSCULAR HGB CONC 34 g/dl (31.0-36.0); MEAN CORPUSCULAR VOLUME 86 fL (80-96); MONOCYTES % (AUTO) 11.1 % (2.0-12.0); NEUTROPHILS # (AUTO) 6.5 /CMM (1.8-8.9); NEUTROPHILS % (AUTO) 73.3 % (43.0-81.0); PLATELET COUNT (AUTO) 294 /CMM (150-450); RED BLOOD CELL COUNT(AUTO) 4.42 MIL/uL (4.5-6.0); WHITE BLOOD COUNT (AUTO) 8.8 K/uL (4.3-11.0)
--- NOTE | 2020-02-14 06:56 | NUR ---
MS RN: END OF SHIFT REPORT Patient in bed, awake. A/O x3. Oxygen sat in high 90's, denies shortness of breath, no cough. On PO abx as scheduled, low grade temp. No other complaints. Voiding without difficulty. Fall precaution maintained.
[2020-02-14 07:19] LABS: APPEARANCE,URINE CLEAR (CLEAR); BILIRUBIN,URINE NEGATIVE (NEGATIVE); BLOOD, URINE NEGATIVE Ery/uL (NEGATIVE); COLOR,URINE YELLOW (YELLOW); KETONES,URINE NEGATIVE (NEGATIVE); LEUKOCYTE ESTERASE ,URINE NEGATIVE (NEGATIVE); NITRITE, URINE NEGATIVE (NEGATIVE); PROTEIN,URINE NEGATIVE (NEGATIVE); UGLUCOSE NEGATIVE (NEGATIVE); UROBILINOGEN,URINE 0.2 EU/dL (0.2)
[2020-02-14 07:20] LABS: CALCIUM, SERUM 8.8 mg/dL (8.5-10.1); CREATININE 0.8 mg/dL (0.6-1.3); POTASSIUM 4.2 mmol/L (3.5-5.1)
[2020-02-14 07:25] LABS: CREATININE, URINE 59.9 MG/DL (30.0-125.0); URINE TOTAL PROTEIN 15.8 mg/dL (0-11.9)
[2020-02-14 08:00] VITALS: BP 154/67
--- NOTE | 2020-02-14 08:00 | NUR ---
MS RN AM NOTES PATIENT IN BED ALERT ORIENTED X 3 . NO ACUTE DISTRESS NOTED. BREATHING UNLABORED. NO SOB NOTED. IV ACCESS PATENT AND INTACT, NO REDNESS, NO BLEEDING, NO SWELLING NOTED. PATIENT URINATES TO THE BATHROOM WITH ASSIST. NO URINARY RETENTION NOTED. SAFETY MEASURES IN PLACE. CALL LIGHT WITHIN REACH.
[2020-02-14] MEDS: CARVEDILOL 12.5 MG TABLET PO SCH ×2 (09:15→21:14)
[2020-02-14] MEDS: CHOLECALCIFEROL 1,000 UNIT TABLET (VIT D3) PO SCH (09:15)
[2020-02-14] MEDS: SPIRONOLACTONE 25 MG TABLET PO SCH (09:16)
[2020-02-14] MEDS: PHENYTOIN EXTENDED RELEASE 100 MG CAPSULE PO SCH ×2 (09:16→21:14)
[2020-02-14] MEDS: DEXAMETHASONE 4 MG TABLET PO SCH (09:16)
[2020-02-14] MEDS: ASPIRIN 325 MG TABLET PO SCH (09:16)
[2020-02-14] MEDS: VALSARTAN 80 MG TABLET PO SCH (09:16)
[2020-02-14] MEDS: ASCORBIC ACID 500 MG TABLET PO SCH (09:16)
[2020-02-14] MEDS: ATORVASTATIN 10 MG TABLET PO SCH (09:16)
[2020-02-14] MEDS: ZINC SULFATE 220 MG CAPSULE PO SCH (09:16)
--- NOTE | 2020-02-14 17:54 | NUR ---
PT WAS MOVED TO ROOM 204-2 WITH HIS BELONGINGS.
--- NOTE | 2020-02-14 17:54 | NUR ---
PT RESTING IN BED WITH NO C/O PAIN OR DISTRESS.SITTING IN THE MIDDLE OF THE BED EATING DINNER. CALL LIGHT PLACED WITHIN REACH.
--- NOTE | 2020-02-14 18:30 | NUR ---
PT SITTING IN BED WITH NO C/O PAIN OR DISTRESS.CALL LIGHT PLACED WITHIN REACH.
--- NOTE | 2020-02-14 19:42 | NUR ---
MS RN RECEIVE PT IN BED A/O X 3 STABLE AND NOT IN DISTRESS, SAFETY MEASURES AT ALL TIMES. WILL CONT TO MONITOR
[2020-02-14 20:00] VITALS: BP 142/87
[2020-02-14] MEDS: TAMSULOSIN 0.4 MG CAP.SR.24H PO SCH (21:13)
[2020-02-14] MEDS: ENOXAPARIN SODIUM 40 MG/0.4 ML DISP.SYRIN SQ SCH (21:15)
[2020-02-14 22:21] VITALS: BP 142/87
--- NOTE | 2020-02-14 23:00 | NUR ---
PT REFUSED STRAIGHT CATH DESPITE EXPLAINING RISKS AND BENEFITS OFFERED 3 TIMES PT REFUSED PT VERBALIZED"I DONT WANT THIS NO MORE" URINE OUTPUT AT 450 CC.
[2020-02-15] MEDS: LEVOFLOXACIN (250MG) 250 MG TABLET PO SCH (05:40)
--- NOTE | 2020-02-15 06:00 | NUR ---
PT REFUSED STRAIGHT CATH DESPITE EXPLAINING RISKS AND BENEFITS OFFERED 3 TIMES PT REFUSED
--- NOTE | 2020-02-15 06:29 | NUR ---
MS RN MONITORED ACCORDINGLY, NO SOB, SLEPT WELL, ALL NEEDS ATTENDED AND ANTICIPATED, KEPT CLEAN, DRY AND COMFORTABLE. DENIES PAIN AND NOT IN DISTRESS, NURSING CARE RENDERED, SAFETY MEASURES AT ALL TIMES. WILL ENDORSE POC.
[2020-02-15 08:00] VITALS: BP 145/92
--- NOTE | 2020-02-15 08:00 | NUR ---
MS RN OPENING NOTES Received Patient resting in bed. A/O x 3, Cameroonian speaking. VS stable with no acute distress. Breathing even and unlabored on 3LPM via NC with no respiratory distress. Denies pain. No signs and symptoms of pain. 22g PIV on RFA intact, patent and flushing well. 22g PIV on LFA intact, patent and flushing well. Safety precautions in place. Bed locked and set to lowest position with side rails x 2 up. All needs rendered at this time. Call light within reach. Will continue to monitor.
[2020-02-15] MEDS: ASPIRIN 325 MG TABLET PO SCH (09:01)
[2020-02-15] MEDS: SPIRONOLACTONE 25 MG TABLET PO SCH (09:01)
[2020-02-15] MEDS: ATORVASTATIN 10 MG TABLET PO SCH (09:02)
[2020-02-15] MEDS: CARVEDILOL 12.5 MG TABLET PO SCH (09:02)
[2020-02-15] MEDS: DEXAMETHASONE 4 MG TABLET PO SCH (09:02)
[2020-02-15] MEDS: VALSARTAN 80 MG TABLET PO SCH (09:02)
[2020-02-15] MEDS: PHENYTOIN EXTENDED RELEASE 100 MG CAPSULE PO SCH (09:02)
[2020-02-15] MEDS: CHOLECALCIFEROL 1,000 UNIT TABLET (VIT D3) PO SCH (09:03)
[2020-02-15] MEDS: ZINC SULFATE 220 MG CAPSULE PO SCH (09:03)
[2020-02-15] MEDS: ASCORBIC ACID 500 MG TABLET PO SCH (09:04)
--- NOTE | 2020-02-15 12:00 | NUR ---
MS RN NOTES Patient refused bladder scan at this time. Explained risks and benefits. Patient still refused. Noted Patient voiding and using urinal. Patient comfortable and in stable condition. Will continue to monitor.
[2020-02-15 16:00] VITALS: BP 177/99
--- NOTE | 2020-02-15 18:05 | NUR ---
MS CLINICAL DOCUMENTATION NURSE NOTES Patient discharged for home at this time. Patient in stable condition. VS stable with no acute distress. Breathing even and unlabored on room air with no respiratory distress. Denies pain. No signs and symptoms of pain. Skin assessment photos taken and placed in chart. Medication reconciliation and discharge orders reviewed and explained to Patient. Provided teaching to maintain isolation precautions at home. Patient verbalized understanding. Patient will follow up with Pierre ALBERTO and PCP in 1 week. All belongings with Patient. Escorted Patient to the Lobby for safety. Patient picked up by .
== END 2020-02-15 18:10 | disposition home or self-care (01) | DRG 177 ==
LOC: ER 18:19 → TELE-TD 20:43 → TELE1 02-03 13:28 → MEDSG1 02-04 21:03 → ICU 02-06 11:33 → MEDSG2 02-08 23:21 → TELE2 02-08 23:50 → MEDSG2 02-09 00:04
PROVIDERS: ADMIT Internal Medicine; ATTEND Internal Medicine
PROC: 30233M1 Transfusion of Nonautologous Plasma Cryoprecipitate into Peripheral Vein, Percutaneous Approach (ICD-10-PCS; principal; 2020-02-08)
DX: U07.1 COVID-19 (principal); I21.4 Non-ST elevation (NSTEMI) myocardial infarction; E43 Unspecified severe protein-calorie malnutrition; I50.31 Acute diastolic (congestive) heart failure; J96.01 Acute respiratory failure with hypoxia; J12.89 Other viral pneumonia; N17.9 Acute kidney failure, unspecified; G93.40 Encephalopathy, unspecified; E87.1 Hypo-osmolality and hyponatremia; I16.0 Hypertensive urgency; Z86.73 Personal history of transient ischemic attack (TIA), and cerebral infarction without residual deficits; I11.0 Hypertensive heart disease with heart failure; G40.909 Epilepsy, unspecified, not intractable, without status epilepticus; E78.5 Hyperlipidemia, unspecified; I70.0 Atherosclerosis of aorta; I35.0 Nonrheumatic aortic (valve) stenosis; I70.1 Atherosclerosis of renal artery; Z91.19 Patient's noncompliance with other medical treatment and regimen
CPT/HCPCS: 36415; 36600; 70450-TC; 71045-TC; 76770-TC; 80048-TC; 80053-TC; 80061-TC; 80076-TC; 80185-TC; 80305; 81000-TC; 82088; 82140-TC; 82550-TC; 82570-TC; 82728-TC; 82803-TC; 82962-TC; 83615-TC; 83690-TC; 83735-TC; 84100-TC; 84155-TC; 84244; 84300-TC; 84439-TC; 84443-TC; 84484-TC; 85025-TC; 85378-TC; 85610-TC; 85652-TC; 85730-TC; 86140-TC; 86225; 86235; 86850-TC; 87040-TC; 87081-TC; 87086-TC; 92611-TC; 93307-TC; 94799-TC; A4216; C9803-CS; G0378; J1650; J1940; J1956; J3490; J7030; J7050; J8540; P9017-BL; U0003-CS

== ENCOUNTER 2020-09-22 13:37 | Emergency (ER) | payer MEDICARE, OTHER ==
[~2020-09-22] VITALS: Ht 154.9 cm; Wt 68.0 kg
[~2020-09-22 13:37] MED LIST: ASPI-992 PO; ATOR10TA PO; METO25TA20 PO; PHEN100C4 PO; SPIR25TA6 PO; TAMS-12 PO
--- NOTE | 2020-09-22 14:00 | NUR ---
Patient came in to the er, sent from the clinic, noted high blood pressure. On room air, breathing evenly and unlabored. Connected to the monitor and pulse ox. kept comfortable, will continue to monitor accordingly.
[2020-09-22] MEDS ORDERED: hydrALAZINE HCL IV 20 MG VIAL ONE (14:27)
[2020-09-22] MEDS ORDERED: hydrALAZINE HCL IV 20 MG VIAL IV ONE (14:30)
[2020-09-22 14:39] LABS: BASOPHILS # (AUTO) 0.1 /CMM (0.0-0.2); EOSINOPHILS % (AUTO) 1.2 % (0.0-6.0); HEMATOCRIT 40 % (39-51); HEMOGLOBIN 13.2 g/dL (13.5-17.5); LYMPHOCYTES # (AUTO) 1.8 /CMM (0.8-4.8); MEAN CORPUSCULAR HGB CONC 33 g/dl (31.0-36.0); MEAN CORPUSCULAR VOLUME 85 fL (80-96); MONOCYTES # (AUTO) 0.8 /CMM (0.1-1.30); MONOCYTES % (AUTO) 10.4 % (2.0-12.0); NEUTROPHILS # (AUTO) 4.6 /CMM (1.8-8.9); NEUTROPHILS % (AUTO) 63.4 % (43.0-81.0); PLATELET COUNT (AUTO) 160 /CMM (150-450); RED BLOOD CELL COUNT(AUTO) 4.78 MIL/uL (4.5-6.0); WHITE BLOOD COUNT (AUTO) 7.3 K/uL (4.3-11.0)
[2020-09-22 14:47] LABS: BILIRUBIN,URINE NEGATIVE (NEGATIVE); COLOR,URINE YELLOW (YELLOW); LEUKOCYTE ESTERASE ,URINE NEGATIVE (NEGATIVE); NITRITE, URINE NEGATIVE (NEGATIVE); PROTEIN,URINE NEGATIVE (NEGATIVE); UGLUCOSE NEGATIVE (NEGATIVE); UROBILINOGEN,URINE 0.2 EU/dL (0.2)
[2020-09-22 14:49] LABS: CALCIUM, SERUM 8.9 mg/dL (8.5-10.1); CREATININE 0.8 mg/dL (0.6-1.3); POTASSIUM 4.3 mmol/L (3.5-5.1)
[2020-09-22 15:08] LABS: BACTERIA,URINE Few /HPF (None Seen); SQUAMOUS EPITHELIAL CELL,UR Few /HPF (None Seen); WBC,URINE 0-2 /HPF (0-3)
[2020-09-22 15:21] VITALS: BP 150/89
--- NOTE | 2020-09-22 15:21 | NUR ---
Patient discharged to home in stable condition. Written and verbal after care instructions given. Patient verbalizes understanding of instruction.IV removed. Catheter intact and site benign. Pressure and 4x4 applied to site. No bleeding noted.
== END 2020-09-22 15:21 | disposition home or self-care (01) ==
LOC: ER 14:05
DX: R31.9 Hematuria, unspecified (principal); I11.0 Hypertensive heart disease with heart failure; I50.9 Heart failure, unspecified; G40.909 Epilepsy, unspecified, not intractable, without status epilepticus; N40.0 Benign prostatic hyperplasia without lower urinary tract symptoms; I25.10 Atherosclerotic heart disease of native coronary artery without angina pectoris; Z86.73 Personal history of transient ischemic attack (TIA), and cerebral infarction without residual deficits; Z79.899 Other long term (current) drug therapy; Z79.82 Long term (current) use of aspirin
CPT/HCPCS: 36415; 80048; 81001; 85025; 96374; 99283; J0360

== ENCOUNTER 2022-03-01 11:30 | Emergency (ER) | payer MEDICAID, MEDICARE ==
[~2022-03-01] VITALS: Ht 152.4 cm; Wt 72.6 kg
--- NOTE | 2022-03-01 11:30 | NUR ---
BIB c/o left arm pain and swelling x 3 days, patient also states that he ran out of dilantin x 1 month. Warm blanket provided for comfort. Awaiting MD koch.
[2022-03-01] MEDS ORDERED: CEPH500C2 PO (13:12)
[2022-03-01] MEDS ORDERED: PHEN100C4 PO (13:12)
[2022-03-01] MEDS ORDERED: SULF1TAB48 PO (13:12)
--- NOTE | 2022-03-01 13:26 | NUR ---
Patient discharged to home in stable condition. Written and verbal after care instructions given. Patient verbalizes understanding of instruction.
[2022-03-01 13:27] VITALS: BP 178/94
== END 2022-03-01 13:27 | disposition home or self-care (01) ==
LOC: ER 11:30
DX: L03.114 Cellulitis of left upper limb (principal); I10 Essential (primary) hypertension; Z86.69 Personal history of other diseases of the nervous system and sense organs; Z79.899 Other long term (current) drug therapy

== ENCOUNTER 2022-08-09 21:48 | Inpatient (IN) | payer MEDICARE, OTHER ==
[~2022-08-09] VITALS: Ht 152.4 cm; Wt 71.7 kg
[~2022-08-09 21:48] MED LIST changes: +CEPH500C2 PO; +SULF1TAB48 PO
--- NOTE | 2022-08-09 23:00 | NUR ---
DENISSE FROM HOME C/O SOB X40 MINUTES. SATTING 100% R/A. AMBULATORY, PLACED IN BED, BREATHING EVEN AND UNLABORED SATURATING AT 99%RA.
--- NOTE | 2022-08-09 23:15 | NUR ---
AT BEDSIDE FOR EVAL
--- NOTE | 2022-08-09 23:33 | NUR ---
BLOOD DRAWN AND SENT TO LAB
[2022-08-09 23:51] LABS: BASOPHILS # (AUTO) 0.1 K/uL (0.0-0.2); BASOPHILS % (AUTO) 0.7 % (0.0-2.0); EOSINOPHILS % (AUTO) 1.8 % (0.0-6.0); HEMATOCRIT 26 % (39-51); HEMOGLOBIN 7.5 g/dL (13.5-17.5); LYMPHOCYTES # (AUTO) 0.9 K/uL (0.8-4.8); LYMPHOCYTES % (AUTO) 9.4 % (20.0-44.0); MEAN CORPUSCULAR HGB CONC 29 g/dl (31.0-36.0); MEAN CORPUSCULAR VOLUME 66 fL (80-96); MONOCYTES # (AUTO) 1.1 K/uL (0.1-1.30); MONOCYTES % (AUTO) 10.4 % (2.0-12.0); NEUTROPHILS # (AUTO) 7.9 K/uL (1.8-8.9); NEUTROPHILS % (AUTO) 77.7 % (43.0-81.0); PLATELET COUNT (AUTO) 138 K/uL (150-450); RED BLOOD CELL COUNT(AUTO) 3.93 MIL/uL (4.5-6.0); WHITE BLOOD COUNT (AUTO) 10.1 K/uL (4.3-11.0)
[2022-08-10 00:13] LABS: CALCIUM, SERUM 8.3 mg/dL (8.5-10.1); CARBON DIOXIDE 24 mmol/L (21-32); CHLORIDE 107 mmol/L (98-107); CREATININE 0.7 mg/dL (0.6-1.3); GLUCOSE 158 mg/dL (74-106); POTASSIUM 4.2 mmol/L (3.5-5.1); SODIUM SERUM 139 mmol/L (136-145); UREA NITROGEN, BLOOD 12 mg/dL (7-18)
[2022-08-10 00:23] LABS: ALANINE AMINOTRANSFERASE 30 U/L (12-78); ALBUMIN 3.4 g/dL (3.4-5.0); ALKALINE PHOSPHATASE 66 U/L (46-116); ASPARTATE AMINOTRANSFERASE 33 U/L (15-37); BILIRUBIN,DIRECT 0.2 mg/dL (0.0-0.2); BILIRUBIN,TOTAL 0.5 mg/dL (0.2-1.0); TOTAL PROTEIN, SERUM 7.5 g/dL (6.4-8.2)
--- NOTE | 2022-08-10 00:50 | NUR ---
COVID SWAB SENT TO LAB
--- NOTE | 2022-08-10 00:52 | NUR ---
TROP 111
[2022-08-10] MEDS ORDERED: FUROSEMIDE 40 MG/4 ML VIAL IV ONE (01:00)
[2022-08-10] MEDS ORDERED: CT SWABBABLE VALVE TRANS SET 1 EA INFUS.SET MC ONE (01:31)
[2022-08-10] MEDS ORDERED: IV NS 0.9% 250 ML IV ONE (01:31)
[2022-08-10] MEDS ORDERED: IOHEXOL-350 100 ML VIAL IV ONE (01:31)
--- NOTE | 2022-08-10 01:40 | NUR ---
PT TAKEN TO CT VIA TODD
--- NOTE | 2022-08-10 03:00 | NUR ---
EPIC PANEL PAGED
[2022-08-10] MEDS ORDERED: Z GUARD REMEDY 4 OZ OINT TP PRN (03:30)
[2022-08-10] MEDS ORDERED: ONDANSETRON HCL/PF 4 MG/2 ML VIAL IVP PRN (03:30)
[2022-08-10] MEDS ORDERED: MAGNESIUM HYDROXIDE 30 ML UDC PO PRN (03:30)
--- NOTE | 2022-08-10 03:57 | NUR ---
REPORT GIVEN TO RANDOLPH JACKSON RN FOR BOLA
--- NOTE | 2022-08-10 04:35 | NUR ---
PT TRANSFERRED TO [facility] VIA ACLS PROTOCOL. VSS. ALL BELONGINGS WITH PT.
[2022-08-10 04:50] VITALS: BP 139/83
--- NOTE | 2022-08-10 04:50 | NUR ---
ADMISSION NOTES, RECEIVED PATIENT FROM ER DEPARTMENT VIA ZAFARRESMER ACCOMPANIED BY 2 NURSES, AWAKE A/O X4, ABLE TO VERBALIZE NEEDS AND CONCERNS, AT ROOM AIR, NOTED SOB WITH EXERTION, AND PUT PT IN 2LPM VIA NC, OPTIMAL O2 SAT LEVEL, UNDER MEDICAL SERVICES ITALO DUNBAR ASSOCIATE DIRECTOR OF NURSING, WITH DX CHF, DENIES ANY CHEST PAIN OR DISCOMFORT, NOTED ABDOMEN SLIGHTLY DISTENDED, DENIES PAIN, SKIN INTACT, NO PRESSURE SORE NOTED AND GENERALIZED BRUISES IN BOTH ARMS, AND RIGHT AND LEFT TORSO, GENERALIZED SCRATCHES, BILATERAL BARILLAS SCRAPES, LEFT HEEL SMALL WOUND, LOOKS THAT IS HEALING, GETTING DRY, NOTED SMALL INCISION IN LEFT GROIN, PATIENT STATED HE HAD AN OPERATION AND WAS IN HOSPITAL DURING THE WEEK, UNABLE TO SAY WHAT PROCEDURE, HE KEEPS SAYING WAS RELATED TO THE HEART, HE STATED HE WENT TO [facility] AND WAS TRANSFERRED THEN TO [facility] AND FROM THERE HE WAS TRANSFER TO ANOTHER HOSPITAL, VITAL SIGNS STABLE, AFEBRILE, BED ALARM ON, BED LOCKED AND IN LOWEST POSITION, CALL LIGHT W/I REACH, WILL ENDORSE CONTINUITY OF CARE TO ONCOMING NURSE
[2022-08-10 05:30] VITALS: BP 144/79
--- NOTE | 2022-08-10 05:41 | NUR ---
NOTED SUDDENLY PATIENT HR DROPPING TO 30S, PT AWAKE A/OX4 DENIES ANY CHEST PAIN OR DISCOMFORT, VITAL SINGS STABLE, INFORMED MANJINDER GRANT, AND RECEIVED AN ORDER FOR STAT EKG, WHERE SHOWS ACCELERATED JUNCTIONAL RHYTHM, RELAYED RESULTS TO MANJINDER AND PER HIM NNO AT THIS TIME, WILL CONTINUE TO MONITOR CLOSELY.
[2022-08-10 06:40] LABS: BASOPHILS # (AUTO) 0.1 K/uL (0.0-0.2); BASOPHILS % (AUTO) 0.8 % (0.0-2.0); EOSINOPHILS % (AUTO) 3.8 % (0.0-6.0); HEMATOCRIT 28 % (39-51); HEMOGLOBIN 8.2 g/dL (13.5-17.5); LYMPHOCYTES # (AUTO) 1.3 K/uL (0.8-4.8); LYMPHOCYTES % (AUTO) 13.7 % (20.0-44.0); MEAN CORPUSCULAR HGB CONC 29 g/dl (31.0-36.0); MEAN CORPUSCULAR VOLUME 66 fL (80-96); MONOCYTES # (AUTO) 1.1 K/uL (0.1-1.30); MONOCYTES % (AUTO) 11.2 % (2.0-12.0); NEUTROPHILS # (AUTO) 6.8 K/uL (1.8-8.9); NEUTROPHILS % (AUTO) 70.5 % (43.0-81.0); PLATELET COUNT (AUTO) 151 K/uL (150-450); RED BLOOD CELL COUNT(AUTO) 4.19 MIL/uL (4.5-6.0); WHITE BLOOD COUNT (AUTO) 9.6 K/uL (4.3-11.0)
[2022-08-10 06:59] LABS: THYROID STIMULATING HORMONE 2.45 uIU/mL (0.358-3.74)
--- NOTE | 2022-08-10 07:30 | NUR ---
RN OPENING NOTE PT OBSERVED IN BED WITH HOB >30 DEGREES AND IS SLEEPING AT THIS TIME. PT IS ON RA O2 SAT 100% NO SIGNS OF DISTRESS OR LABORED BREATHING. PT IS A/OX4 MONTENEGRIN SPEAKING ONLY AND PLEASANT. PT STATED PREVIOUS NIGHT IS ABLE TO WALK ON HIS OWN, PER DIGITAL CAMERA TECHNICIAN RN, PT NOT STABLE WHEN AMBULATING. IV ACCESS L WRIST 20G NO FLUIDS INFUSING AT THIS TIME. BED IS LOCKED IN LOWEST POSITION AND ALL HOSPITAL SAFETY MEASURES ARE IN PLACE AND CALL CHERRY IS WITHIN REACH WILL CONTINUE TO MONITOR THIS SHIFT.
[2022-08-10] MEDS: PANTOPRAZOLE 40 MG TABLET.DR PO SCH (08:42)
[2022-08-10 09:24] LABS: ALBUMIN 3.4 g/dL (3.4-5.0); BILIRUBIN,TOTAL 0.4 mg/dL (0.2-1.0); CALCIUM, SERUM 8.5 mg/dL (8.5-10.1); CREATININE 0.8 mg/dL (0.6-1.3); MAGNESIUM 2.2 mg/dL (1.8-2.4); POTASSIUM 4.1 mmol/L (3.5-5.1); TOTAL PROTEIN, SERUM 7.4 g/dL (6.4-8.2)
[2022-08-10] MEDS: ATORVASTATIN 10 MG TABLET PO SCH (10:10)
[2022-08-10] MEDS: SPIRONOLACTONE 25 MG TABLET PO SCH (10:10)
[2022-08-10] MEDS: ASPIRIN 325 MG TABLET PO SCH (10:10)
[2022-08-10] MEDS: PHENYTOIN EXTENDED RELEASE 100 MG CAPSULE PO SCH ×2 (10:10→21:27)
[2022-08-10 13:23] VITALS: BP 119/77
[2022-08-10 16:00] VITALS: BP 119/65
[2022-08-10] MEDS: FERROUS SULFATE (325 MG) 325 MG/TAB TABLET PO SCH (17:07)
--- NOTE | 2022-08-10 19:00 | NUR ---
RN NOTES: PT NOTED WITH A-FIB, HR 51 NOTED ON EKG. PREVIOUS SHIFT RN NOTIFIED ALESSIO RIZVI. PER NO CHANGES IN MEDS.
--- NOTE | 2022-08-10 19:14 | NUR ---
RN CLOSING NOTE PT IS IN BED SITTING UP WITH AT BEDSIDE AT THIS TIME. PT IS ON RA O2 SAT 100% NO SIGNS OF DISTRESS OR LABORED BREATHING. PT IS A/OX4 HUNGARIAN SPEAKING ONLY AND PLEASANT. PT STATED PREVIOUS NIGHT IS ABLE TO WALK ON HIS OWN, PER WORK MANAGER RN, PT NOT STABLE WHEN AMBULATING. IV ACCESS L WRIST 20G NO FLUIDS INFUSING AT THIS TIME. BED IS LOCKED IN LOWEST POSITION AND ALL HOSPITAL SAFETY MEASURES ARE IN PLACE AND CALL CHERRY IS WITHIN REACH WILL ENDORSE TO WORK MANAGER NURSE FOR BOLA.
--- NOTE | 2022-08-10 19:35 | NUR ---
RN OPENING NOTES: RECEIVED PT IN BED SITTING POSITION, AT BEDSIDE. PT AWAKE, ALERT/ORIENTED X4, SLOVENIAN SPEAKING ONLY. ON ROOM AIR AND PT TOLERATED WELL. IV ACCESS LT WRIST#20G INTACT AND PATENT. NO S/S OF INFILTRATIONS. NO C/O PAIN OR DISCOMFORT. NO ACUTE DISTRESS. ALL SAFETY MEASURES IN PLACE. BED IN LOWEST POSITION AND LOCKED. SIDE RAILS UP X3, PLACE CALL LIGHT WITH IN REACH. WILL CONTINUE TO MONITOR.
[2022-08-10 20:00] VITALS: BP 112/70
[2022-08-10] MEDS ORDERED: HEPARIN SODIUM, PORCINE 5000 UNITS/1 ML VIAL SQ SCH (21:00)
[2022-08-10] MEDS: TAMSULOSIN 0.4 MG CAP.SR.24H PO SCH (21:26)
[2022-08-11] VITALS: BP 120/65
[2022-08-11 04:00] VITALS: BP 123/76
--- NOTE | 2022-08-11 06:25 | NUR ---
RN CLOSING NOTES: PT IN BED, SLEEPING BUT EASILY AROUSABLE, ALERT/ORIENTED X4, NIUEAN SPEAKING ONLY. ON O2 AT 2L/MIN VIA N/C AND PT TOLERATED WELL. O2 SAT 97%. IV ACCESS LT WRIST#20G INTACT AND PATENT. NO S/S OF INFILTRATIONS. NO C/O PAIN OR DISCOMFORT. NO ACUTE DISTRESS. ALL DUE MEDS GIVEN ORDERED. TELE MONITORING SHOWS A-FIB /A-FLUTTER. HR 50. DR. YATES AWARE. ALL SAFETY MEASURES IN PLACE. BED IN LOWEST POSITION AND LOCKED. SIDE RAILS UP X3, PLACE CALL LIGHT WITH IN REACH. WILL ENDORSE TO MORNING SHIFT NURSE.
[2022-08-11 07:14] LABS: BASOPHILS # (AUTO) 0.2 K/uL (0.0-0.2); BASOPHILS % (AUTO) 1.8 % (0.0-2.0); EOSINOPHILS % (AUTO) 6.2 % (0.0-6.0); HEMATOCRIT 26 % (39-51); HEMOGLOBIN 7.6 g/dL (13.5-17.5); LYMPHOCYTES # (AUTO) 1.7 K/uL (0.8-4.8); LYMPHOCYTES % (AUTO) 19.7 % (20.0-44.0); MEAN CORPUSCULAR HGB CONC 30 g/dl (31.0-36.0); MEAN CORPUSCULAR VOLUME 66 fL (80-96); MONOCYTES # (AUTO) 1.1 K/uL (0.1-1.30); MONOCYTES % (AUTO) 12.8 % (2.0-12.0); NEUTROPHILS # (AUTO) 5.2 K/uL (1.8-8.9); NEUTROPHILS % (AUTO) 59.5 % (43.0-81.0); PLATELET COUNT (AUTO) 138 K/uL (150-450); RED BLOOD CELL COUNT(AUTO) 3.89 MIL/uL (4.5-6.0); WHITE BLOOD COUNT (AUTO) 8.7 K/uL (4.3-11.0)
[2022-08-11 07:46] LABS: CALCIUM, SERUM 8.7 mg/dL (8.5-10.1); MAGNESIUM 2.1 mg/dL (1.8-2.4); PHOSPHORUS 4.5 mg/dL (2.5-4.9); POTASSIUM 3.9 mmol/L (3.5-5.1)
--- NOTE | 2022-08-11 07:48 | NUR ---
POTATO CHIP SORTER OPENING NOTES: RECEIVED PT IN BED, PT AWAKE, ALERT/ORIENTED X4, UZBEK SPEAKING ONLY. ON ROOM AIR AND PT TOLERATED WELL. IV ACCESS LT WRIST#20G INTACT AND PATENT. NO S/S OF INFILTRATIONS. NO C/O PAIN OR DISCOMFORT. NO ACUTE DISTRESS. ALL SAFETY MEASURES IN PLACE. ON TELE MONITOR SB 56, NO C/ OF DIZZINESS OR CHEST PAIN. BED IN LOWEST POSITION AND LOCKED. SIDE RAILS UP X3, PLACE CALL LIGHT WITHIN REACH. PLAN OF CARE CONTINUE.
[2022-08-11 08:00] VITALS: BP 121/70
[2022-08-11] MEDS: ATORVASTATIN 10 MG TABLET PO SCH (08:33)
[2022-08-11] MEDS: SPIRONOLACTONE 25 MG TABLET PO SCH (08:33)
[2022-08-11] MEDS: FERROUS SULFATE (325 MG) 325 MG/TAB TABLET PO SCH ×2 (08:33→16:38)
[2022-08-11] MEDS: PANTOPRAZOLE 40 MG TABLET.DR PO SCH (08:33)
[2022-08-11] MEDS: ASPIRIN 325 MG TABLET PO SCH (08:33)
[2022-08-11] MEDS: PHENYTOIN EXTENDED RELEASE 100 MG CAPSULE PO SCH ×2 (08:33→21:09)
[2022-08-11 12:00] VITALS: BP 125/74
[2022-08-11 16:00] VITALS: BP 122/80
--- NOTE | 2022-08-11 18:58 | NUR ---
AGENCY CASHIER CLOSING NOTES: PT IN BED, PT AWAKE, ALERT/ORIENTED X4, PARAGUAYAN SPEAKING ONLY. ON ROOM AIR AND PT TOLERATED WELL. IV ACCESS LT WRIST#20G INTACT AND PATENT. NO S/S OF INFILTRATIONS. NO C/O PAIN OR DISCOMFORT. NO ACUTE DISTRESS. ALL SAFETY MEASURES IN PLACE. ON TELE MONITOR SR 65, NO C/ OF DIZZINESS OR CHEST PAIN. BED IN LOWEST POSITION AND LOCKED. SIDE RAILS UP X3, PLACE CALL LIGHT WITHIN REACH. ENDORSED TO NIGHT NURSE FOR BOLA.
[2022-08-11 20:00] VITALS: BP 115/63
--- NOTE | 2022-08-11 20:03 | NUR ---
POST HOLE DIGGER OPENING NOTES: RECEIVED PATIENT IN BED SLEEPING, EASILY AWAKEN WHEN CALLED BY NAME. ALERT/ORIENTED X4, URDU SPEAKING ONLY. ON ROOM AIR AND PATIENT TOLERATED WELL. IV ACCESS LEFT WRIST#20G SALINE LOCK NOTED TO BE INTACT AND PATENT. NO C/O PAIN OR DISCOMFORT AT THI TIME. NOT IN DISTRESS NOTED. ON TELE MONITOR READING OF SR 65, NO C/ OF DIZZINESS OR CHEST PAIN. ALL SAFETY MEASURES IN PLACED; BED IN LOWEST POSITION AND LOCKED, SIDE RAILS UP X3, CALL LIGHT AND BEDSIDE TABLE WITHIN PATIENT REACH.
[2022-08-11] MEDS: TAMSULOSIN 0.4 MG CAP.SR.24H PO SCH (21:09)
[2022-08-11] MEDS: ACETAMINOPHEN 325 MG TABLET PO PRN (23:32)
[2022-08-12] VITALS: BP 109/58
[2022-08-12 04:00] VITALS: BP 108/67
[2022-08-12 04:36] LABS: BASOPHILS # (AUTO) 0.2 K/uL (0.0-0.2); BASOPHILS % (AUTO) 1.8 % (0.0-2.0); EOSINOPHILS % (AUTO) 3.6 % (0.0-6.0); HEMATOCRIT 27 % (39-51); HEMOGLOBIN 8.1 g/dL (13.5-17.5); LYMPHOCYTES # (AUTO) 1.9 K/uL (0.8-4.8); LYMPHOCYTES % (AUTO) 18.6 % (20.0-44.0); MEAN CORPUSCULAR HGB CONC 30 g/dl (31.0-36.0); MEAN CORPUSCULAR VOLUME 66 fL (80-96); MONOCYTES # (AUTO) 1.2 K/uL (0.1-1.30); MONOCYTES % (AUTO) 12.3 % (2.0-12.0); NEUTROPHILS # (AUTO) 6.5 K/uL (1.8-8.9); NEUTROPHILS % (AUTO) 63.7 % (43.0-81.0); PLATELET COUNT (AUTO) 144 K/uL (150-450); RED BLOOD CELL COUNT(AUTO) 4.12 MIL/uL (4.5-6.0); WHITE BLOOD COUNT (AUTO) 10.2 K/uL (4.3-11.0)
[2022-08-12 04:43] LABS: CALCIUM, SERUM 8.6 mg/dL (8.5-10.1); CARBON DIOXIDE 26 mmol/L (21-32); CHLORIDE 106 mmol/L (98-107); CREATININE 0.9 mg/dL (0.6-1.3); GLUCOSE 111 mg/dL (74-106); POTASSIUM 4.2 mmol/L (3.5-5.1); SODIUM SERUM 138 mmol/L (136-145); UREA NITROGEN, BLOOD 20 mg/dL (7-18)
[2022-08-12] MEDS ORDERED: LIDOCAINE HCL/MPF 1% 30 ML VIAL IJ ONE (06:57)
[2022-08-12] MEDS ORDERED: IOHEXOL 0 ML IV ONE (06:58)
--- NOTE | 2022-08-12 07:00 | NUR ---
PROJECT PRODUCT MANAGER CLOSING NOTES PATIENT IN BED SLEEPING, EASILY AWAKEN WHEN CALLED BY NAME. ALERT/ORIENTED X4, YAKUT SPEAKING ONLY. ON ROOM AIR AND PATIENT TOLERATED WELL. IV ACCESS LEFT WRIST#20G SALINE LOCK NOTED TO BE INTACT AND PATENT. NO C/O PAIN OR DISCOMFORT AT THI TIME. NOT IN DISTRESS NOTED. ON TELE MONITOR READING OF SR 65, NO C/ OF DIZZINESS OR CHEST PAIN. ALL DUE MEDICATIONS ARE GIVEN. MADE SURE PATIENT IS COMFORTABLE, PATIENT. ALL NEEDS ARE MET. SAFETY MEASURES IN PLACED; BED IN LOWEST POSITION AND LOCKED, SIDE RAILS UP X3, CALL LIGHT AND BEDSIDE TABLE WITHIN PATIENT REACH. WILL ENDORSE TO NEXT SHIFT NURSE FOR CONTINUITY OF CARE.
[2022-08-12] MEDS ORDERED: MIDAZOLAM HCL 2 MG/2ML VIAL ONE (07:05)
[2022-08-12] MEDS ORDERED: FENTANYL PF 100MCG/2ML AMPUL ONE (07:05)
--- NOTE | 2022-08-12 07:15 | NUR ---
telephone directory deliverer opening note received patient alert and oriented x4. romanian speaking. left for surgery
[2022-08-12] MEDS: PANTOPRAZOLE 40 MG TABLET.DR PO SCH (07:30)
[2022-08-12 08:00] VITALS: BP 91/55
[2022-08-12] MEDS ORDERED: CELLULOSE,OXIDIZED 1 EACH EACH MC ONE (08:04)
[2022-08-12] MEDS ORDERED: CELLULOSE,OXIDIZED 1 EA PACK MC ONE (08:04)
[2022-08-12] MEDS: SPIRONOLACTONE 25 MG TABLET PO SCH (08:10)
[2022-08-12] MEDS: ASPIRIN 325 MG TABLET PO SCH (08:10)
[2022-08-12] MEDS: FERROUS SULFATE (325 MG) 325 MG/TAB TABLET PO SCH ×2 (08:11→17:32)
[2022-08-12] MEDS: ATORVASTATIN 10 MG TABLET PO SCH (08:11)
[2022-08-12] MEDS: PHENYTOIN EXTENDED RELEASE 100 MG CAPSULE PO SCH ×2 (08:17→20:31)
--- NOTE | 2022-08-12 09:15 | NUR ---
rn note gave report to Brian Krueger rn for conutiy of care
--- NOTE | 2022-08-12 10:15 | NUR ---
RETURN FROM SURGERY Patient returned from surgery for implanting permanent pacemaker, via bed, back to room 120 in [facility] Unit. Patient was alert and oriented x 4, vital signs stable, occlusive clear dressing over sterile gauze to left upper chest was clean, dry, and intact. Surrounding skin WNL without any swelling or bruising, nor any redness. Will continue to monitor and care for patient per hospitalist provider's POC.
[2022-08-12] MEDS: ACETAMINOPHEN 325 MG TABLET PO PRN ×2 (10:19→20:31)
[2022-08-12 12:00] VITALS: BP 137/77
[2022-08-12 16:00] VITALS: BP 132/76
[2022-08-12] MEDS ORDERED: PNEUMOCOCCAL 23-VAL P-SAC VAC 0.5 ML VIAL SQ ONE (16:00)
[2022-08-12] MEDS ORDERED: INFLUENZA VACCINE 2022-23 0.5 ML DISP.SYRIN IM ONE (16:00)
--- NOTE | 2022-08-12 19:50 | NUR ---
noc rn opening received patient sleeping comfortably, easy to arouse. no s/s of apparent distress on room air. no c/o pain at this time.Patient reading A-pacing with A-fib at this time hr in the 70's. no fluids running at this time. safety in place--call light within reach, bed in lowest, locked position, side rails up X2. will continue with the plan of care for patient. Standing order for PNU and FLU vaccine in place, d/t patient S/P pacemaker insertion to be given upon discharge.
[2022-08-12 20:00] VITALS: BP 131/72
--- NOTE | 2022-08-12 21:14 | NUR ---
noc rn note Report given to TONY Moy for continuity of patient care.
--- NOTE | 2022-08-12 21:15 | NUR ---
NETBACKUP ADMIN OPENING NOTE RECEIVED PATIENT FROM ROBSON RN; PATIENT IN BED, A/O X 4, ABLE TO MAKE NEEDS KNOWN, MALAY SPEAKING AND ASKING HELP FROM A AGRICULTURAL CHEMIST TO COMMUNICATE WITH PATIENT; STABLE ON ROOM AIR, BREATHING EVENLY AND NO DISTRESS NOTED; HOOKED TO TELE MONITORING; WITH IV ACCESS ON LEFT WRIST G#20 SALINE LOCK; NO FLUIDS RUNNING AT THIS TIME; NO COMPLAINS OF PAIN AND DISCOMFORT AT THIS TIME; SAFETY MEASURES IMPLEMENTED, BED IN LOW AND LOCKED POSITION, SIDE RAILS UP X 2, CALL LIGHT AND TABLE WITHIN REACH; FOR PNEUMONIA AND FLU VACCINE PRIOR TO DISCHARGE; WILL CONTINUE TO MONITOR THROUGHOUT SHIFT
[2022-08-12] MEDS: TAMSULOSIN 0.4 MG CAP.SR.24H PO SCH (21:36)
[2022-08-13] VITALS: BP 127/70
[2022-08-13] MEDS: ACETAMINOPHEN 325 MG TABLET PO PRN (02:53)
--- NOTE | 2022-08-13 03:00 | NUR ---
TERADATA DEVELOPER NOTE PATIENT COMPLAINED OF PAIN ON THE SURGERY SITE, ASKED FOR TYLENOL. TYLENOL GIVEN. PATIENT TOLERATED WELL
[2022-08-13 04:00] VITALS: BP 126/77
--- NOTE | 2022-08-13 07:00 | NUR ---
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 NO SOB OR CARDIAC DISTRESS NOTED. ON MANIFOLD BUILDER WITH CURRENT READING OF: ATRIAL PACING WITH AFIB @89 BPM. IV ACCESS ON LEFT WRIST GAUGE 20 PATENT,INTACT AND SL. SAFETY MEASURES MAINTAINED: BED LOCKED AND IN LOWEST POSITION, SIDE RAILS UP X 2. CALL LIGHT WITHIN EASY REACH AND WILL MONITOR PT ACCORDINGLY.
--- NOTE | 2022-08-13 07:01 | NUR ---
ENVIRONMENTAL COMPLIANCE MANAGER CLOSING NOTE PATIENT IN BED, A/O X 4, ABLE TO MAKE NEEDS KNOWN, VINCENTIAN SPEAKING AND ASKING HELP FROM A OSTRICH FARMER TO COMMUNICATE WITH PATIENT; STABLE ON ROOM AIR, BREATHING EVENLY AND NO DISTRESS NOTED; HOOKED TO TELE MONITORING; WITH IV ACCESS ON LEFT WRIST G#20 SALINE LOCK; NO FLUIDS RUNNING AT THIS TIME; NO COMPLAINS OF PAIN AND DISCOMFORT AT THIS TIME; ADMINISTERED MEDICATIONS PRESCRIBED; PATIENT'S NEEDS ATTENDED; MONITORED PATIENT ACCORDINGLY; SAFETY MEASURES IMPLEMENTED, BED IN LOW AND LOCKED POSITION, SIDE RAILS UP X 2, CALL LIGHT AND TABLE WITHIN REACH; FOR PNEUMONIA AND FLU VACCINE PRIOR TO DISCHARGE; WILL ENDORSE TO AM NURSE FOR BOLA.
[2022-08-13 07:07] LABS: BASOPHILS # (AUTO) 0.1 K/uL (0.0-0.2); BASOPHILS % (AUTO) 1.1 % (0.0-2.0); EOSINOPHILS % (AUTO) 1.4 % (0.0-6.0); HEMATOCRIT 27 % (39-51); LYMPHOCYTES # (AUTO) 1.5 K/uL (0.8-4.8); LYMPHOCYTES % (AUTO) 13.7 % (20.0-44.0); MEAN CORPUSCULAR HGB CONC 30 g/dl (31.0-36.0); MEAN CORPUSCULAR VOLUME 67 fL (80-96); MONOCYTES # (AUTO) 1.4 K/uL (0.1-1.30); MONOCYTES % (AUTO) 12.9 % (2.0-12.0); NEUTROPHILS # (AUTO) 7.7 K/uL (1.8-8.9); NEUTROPHILS % (AUTO) 70.9 % (43.0-81.0); PLATELET COUNT (AUTO) 151 K/uL (150-450); RED BLOOD CELL COUNT(AUTO) 3.97 MIL/uL (4.5-6.0); WHITE BLOOD COUNT (AUTO) 10.8 K/uL (4.3-11.0)
[2022-08-13 07:13] LABS: CALCIUM, SERUM 8.3 mg/dL (8.5-10.1)
[2022-08-13] MEDS: PANTOPRAZOLE 40 MG TABLET.DR PO SCH (07:30)
[2022-08-13 08:00] VITALS: BP 125/68
[2022-08-13] MEDS: PHENYTOIN EXTENDED RELEASE 100 MG CAPSULE PO SCH (08:31)
[2022-08-13] MEDS: ATORVASTATIN 10 MG TABLET PO SCH (08:31)
[2022-08-13] MEDS: FERROUS SULFATE (325 MG) 325 MG/TAB TABLET PO SCH (08:31)
[2022-08-13] MEDS: SPIRONOLACTONE 25 MG TABLET PO SCH (08:31)
[2022-08-13] MEDS: ASPIRIN 325 MG TABLET PO SCH (08:31)
[2022-08-13] MEDS ORDERED: FERR325T28 PO (10:17)
[2022-08-13] MEDS ORDERED: PANT40TA49 PO (10:17)
[2022-08-13 12:00] VITALS: BP 129/74
[2022-08-13] MEDS ORDERED: INFLUENZA VACCINE 2022-23 0.5 ML DISP.SYRIN IM ONE (12:00)
[2022-08-13] MEDS ORDERED: PNEUMOCOCCAL 23-VAL P-SAC VAC 0.5 ML VIAL SQ ONE (12:30)
--- NOTE | 2022-08-13 13:04 | NUR ---
RN NOTES: FLU VACCINE AND PNEUMONIA GIVEN PER PT REQUEST.
--- NOTE | 2022-08-13 15:00 | NUR ---
MANAGER CHILD NOTES: PT DC TO [facility]. PT NICARAGUAN SPEAKER A/O X4 AND ABLE TO MAKE NEEDS KNOWN. NO SOB OR CARDIAC DISTRESS NOTED. PACEMAKER ON LCW SECURED WITH DRESSING. IV ACCESS REMOVED. REPORT GIVEN TO RN HUSSEIN PACKET GIVEN TO EMT. BELONGINGS TAKEN WITH THE RESIDENT. PACEMAKER INFO,PNA AND FLU VACCINE ATTACHED TO PACKET ENDORSED TO RN HUSSEIN AND EMT. SKIN IS INTACT. PT LEFT THE UNIT STABLE,
== END 2022-08-13 14:57 | DRG 242 ==
LOC: ER 21:51 → TELE1 08-10 03:51 → MEDSG1 08-13 08:57
PROVIDERS: ADMIT Nurse Practitioner Acute Care; ATTEND Nurse Practitioner Acute Care
PROC: 0JH606Z Insertion of Pacemaker, Dual Chamber into Chest Subcutaneous Tissue and Fascia, Open Approach (ICD-10-PCS; principal; 2022-08-12)
PROC: 02H63JZ Insertion of Pacemaker Lead into Right Atrium, Percutaneous Approach (ICD-10-PCS; 2022-08-12)
PROC: 02HK3JZ Insertion of Pacemaker Lead into Right Ventricle, Percutaneous Approach (ICD-10-PCS; 2022-08-12)
PROC: B516YZA Fluoroscopy of Right Subclavian Vein using Other Contrast, Guidance (ICD-10-PCS; 2022-08-12)
DX: I11.0 Hypertensive heart disease with heart failure (principal); I21.A1 Myocardial infarction type 2; I50.33 Acute on chronic diastolic (congestive) heart failure; I49.5 Sick sinus syndrome; Z20.822 Contact with and (suspected) exposure to COVID-19; Z95.2 Presence of prosthetic heart valve; I35.0 Nonrheumatic aortic (valve) stenosis; I25.10 Atherosclerotic heart disease of native coronary artery without angina pectoris; I70.1 Atherosclerosis of renal artery; Z79.82 Long term (current) use of aspirin; Z79.899 Other long term (current) drug therapy; G40.909 Epilepsy, unspecified, not intractable, without status epilepticus; E78.5 Hyperlipidemia, unspecified; D50.9 Iron deficiency anemia, unspecified; E66.9 Obesity, unspecified; Z68.30 Body mass index [BMI] 30.0-30.9, adult
CPT/HCPCS: 36415; 71045-TC; 80048-TC; 80053-TC; 80061-TC; 80076-TC; 82728-TC; 83540-TC; 83735-TC; 83880; 84100-TC; 84443-TC; 84484-TC; 85025-TC; 85610-TC; 85730-TC; 86850-TC; 87081-TC; 90732; 93307-TC; 97116-TC; 97530-TC; C9803; G0378; J0461; J0690; J1644; J1940; J2001; J2250; J2704; J3010; J3490; J7030; J7050; Q2036; Q9967